=== PATIENT | female | born 1975 | race Two or more races ===

== ENCOUNTER 2022-04-21 11:33 | Outpatient (REF) | payer OTHER, SELFPAY | END 2022-04-21 11:34 | disposition home or self-care (01) | LOC: HO.HOSX 11:33 | PROVIDERS: Visit Provider Orthopaedic Surgery | DX: Z13.89 Encounter for screening for other disorder (principal) ==

== ENCOUNTER 2022-04-22 | Outpatient (REF) | payer OTHER, SELFPAY ==
--- NOTE | ~2022-04-22 | XR_ITS ---
EXAMINATION: XR KNEES AP STANDING, BILATERAL XR KNEE, 2 VIEWS, RIGHT CLINICAL INFORMATION: M25.569 - Pain in unspecified knee. COMPARISON: 08/16/2017 TECHNIQUE: Standing AP view of both knees and lateral and sunrise views of the right knee. FINDINGS: LEFT KNEE: Bones and soft tissues are normal. No fracture. Alignment is anatomic. Joint spaces are well maintained. No abnormal soft tissue calcification. RIGHT KNEE: Postsurgical changes of prior ACL reconstruction are evident with an Endobutton at the lateral aspect of the femoral tunnel and a lag screw soft tissue anchor in the anteromedial aspect of the proximal tibia near the tibial tunnel, unchanged from prior. Again seen is nonuniform medial compartment joint space narrowing with articular cortical irregularity and marginal osteophytes. Additional marginal osteophytes and cortical irregularity are evident in the patellofemoral compartment. Lateral compartment appears relatively well preserved by comparison. Overall, this appearance is unchanged as compared to prior. No significant joint effusion. XR/XR knee standing BI IMPRESSION: Mild osteoarthritis in the medial and patellofemoral compartments of the right knee, unchanged. Prior ACL reconstruction. No acute findings. Normal AP view of the left knee.
--- NOTE | ~2022-04-22 | XR_ITS ---
EXAMINATION: XR KNEES AP STANDING, BILATERAL XR KNEE, 2 VIEWS, RIGHT CLINICAL INFORMATION: M25.569 - Pain in unspecified knee. COMPARISON: 08/16/2017 TECHNIQUE: Standing AP view of both knees and lateral and sunrise views of the right knee. FINDINGS: LEFT KNEE: Bones and soft tissues are normal. No fracture. Alignment is anatomic. Joint spaces are well maintained. No abnormal soft tissue calcification. RIGHT KNEE: Postsurgical changes of prior ACL reconstruction are evident with an Endobutton at the lateral aspect of the femoral tunnel and a lag screw soft tissue anchor in the anteromedial aspect of the proximal tibia near the tibial tunnel, unchanged from prior. Again seen is nonuniform medial compartment joint space narrowing with articular cortical irregularity and marginal osteophytes. Additional marginal osteophytes and cortical irregularity are evident in the patellofemoral compartment. Lateral compartment appears relatively well preserved by comparison. Overall, this appearance is unchanged as compared to prior. No significant joint effusion. XR/XR knee RT 2V IMPRESSION: Mild osteoarthritis in the medial and patellofemoral compartments of the right knee, unchanged. Prior ACL reconstruction. No acute findings. Normal AP view of the left knee.
== END 2022-04-22 00:01 | disposition home or self-care (01) ==
LOC: HO.HOSX
PROVIDERS: Visit Provider Orthopaedic Surgery
DX: M25.561 Pain in right knee (principal)
CPT/HCPCS: 73560; 73565

== ENCOUNTER 2023-02-28 08:27 | Outpatient (REF) | payer OTHER, SELFPAY ==
--- NOTE | ~2023-02-28 | XR_ITS ---
EXAMINATION: XR KNEE, AP STANDING, BILATERAL XR KNEE, 2 VIEWS, LEFT CLINICAL INFORMATION: M25.569 - Pain in unspecified knee. COMPARISON: 04/22/2022. TECHNIQUE: Standing AP view of both knees and lateral and sunrise views of the left knee. FINDINGS: LEFT KNEE: Medial and lateral joint spaces are preserved. Small joint effusion. Tiny posterior patellar osteophytes. RIGHT KNEE: Redemonstration of postsurgical changes of prior ACL reconstruction with Endobutton at the lateral aspect of the femoral tunnel and a lag screw, soft tissue anchor in the anteromedial aspect of the proximal tibia near the tibial tunnel, similar in position. Redemonstration of advanced medial joint space narrowing with cortical irregularity and marginal osteophytes. Small lateral marginal osteophytes. XR/XR knee standing BI IMPRESSION: 1. Minimal degenerative changes left knee with small joint effusion. 2. Redemonstration of postsurgical changes of prior right ACL reconstruction. 3. Redemonstration of advanced degenerative changes medial compartment right knee.
--- NOTE | ~2023-02-28 | XR_ITS ---
EXAMINATION: XR KNEE, AP STANDING, BILATERAL XR KNEE, 2 VIEWS, LEFT CLINICAL INFORMATION: M25.569 - Pain in unspecified knee. COMPARISON: 04/22/2022. TECHNIQUE: Standing AP view of both knees and lateral and sunrise views of the left knee. FINDINGS: LEFT KNEE: Medial and lateral joint spaces are preserved. Small joint effusion. Tiny posterior patellar osteophytes. RIGHT KNEE: Redemonstration of postsurgical changes of prior ACL reconstruction with Endobutton at the lateral aspect of the femoral tunnel and a lag screw, soft tissue anchor in the anteromedial aspect of the proximal tibia near the tibial tunnel, similar in position. Redemonstration of advanced medial joint space narrowing with cortical irregularity and marginal osteophytes. Small lateral marginal osteophytes. XR/XR knee LT 2V IMPRESSION: 1. Minimal degenerative changes left knee with small joint effusion. 2. Redemonstration of postsurgical changes of prior right ACL reconstruction. 3. Redemonstration of advanced degenerative changes medial compartment right knee.
== END 2023-02-28 08:28 | disposition home or self-care (01) ==
LOC: HO.HOSX 08:27
PROVIDERS: Visit Provider Orthopaedic Surgery
DX: M23.92 Unspecified internal derangement of left knee (principal); M25.562 Pain in left knee
CPT/HCPCS: 20610; 73560; 73565; J1100

== ENCOUNTER 2023-02-28 09:15 | Outpatient (AMB) | payer OTHER, SELFPAY ==
--- NOTE | 2023-02-28 09:33 | MHC.OFFVIS ---
Intake Vital Signs 02/28/23 09:38 Height 5 ft 3.5 in Weight 220 lb BMI 38.4 Intake Visit Reasons: Newprob-Left knee pain Intake Note: Erika is a 47 year old female who presents today for a new problem visit with complaints of left knee pain. Patient reports about 3 weeks ago she tried to catch her father while he was falling and felt pain in the left knee. Currently she feels pain on the medial aspect of the left knee at all times, worsened with activity. Takes tylenol & ibuprofen as needed with mild relief. no previous history of treatment for this knee. Denies numbness and tingling. Allergies aspirin [ASPIRIN] Allergy (Unknown, Verified 02/28/23 09:41) EPISTAXIS YRS AGO HPI Newprob-Left knee pain HPI Details Erika is a 47 year old woman who presents with complaints of left knee pain. She complains of pain mostly in the median aspect of her knee, which she says is constant. Her pain began ~3 weeks ago when she tried to catch her falling father. She says Tylenol & NSAIDs do not help her pain. She says her pain is worse with twisting motions, and is limiting her function. She says sleep has been difficult due to her pain. She has severe post-traumatic OA of the right knee. She has a hx of right ACL repair w/ allograft & MMT, DOS: 09/22/10 at [facility] & right knee partial medial meniscectomy, DOS: 03/03/16 performed by [facility]. 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 Site was prepped using aseptic technique. Patient tolerated the procedure well. Primary Site: left knee Approach Used: anterolateral Coding - Large joint Procedure code (CPT) selection complete Results Reviewed Results Reviewed: 02/28/23 09:49 BUPivacaine MPF 0.25 % [Sensorcaine-MPF 0.25% 10 ML] 10 ml .ROUTE .STK-MED ONE Lidocaine HCl 2 % MPF [Xylocaine 2 % MPF] 5 ml .ROUTE .STK-MED ONE dexAMETHasone sod phosphate [Decadron] 4 mg .ROUTE .STK-MED ONE I personally reviewed relevant radiographs. Nl left knee radiographs Assessment & Plan Assessment & Plan (1) Internal derangement of left knee: Code(s): M23.92 - Unspecified internal derangement of left knee Plan: This is a 47 year old woman with left knee internal derangement, S/P injury on ~02/07/23. She has pain constantly, worse with twisting activities and weight-bearing. I discussed her diagnosis and treatment options. I recommend RICE & NSAIDs. I injected her left knee today, which she tolerated well, and I prescribed Ibuprofen for her. If her symptoms persist or worsen in the next 6 weeks we can consider ordering an MRI . Otherwise, follow-up prn. Plan Scribed for Danny Turner MD by Ayush Chung, medical staff director, on 02/28/23 at 9:50 AM, EST. Orders: Orders XR knee LT 2V 02/28/23 M25.569 - Pain in unspecified knee XR knee standing BI 02/28/23 M25.569 - Pain in unspecified knee Medications: New ibuprofen 800 mg PO TID PRN 90 tabs 0RF pain Coding Level of Care Code Est Pt Level 4 (13607) Diagnoses Internal derangement of left knee M23.92 CPT Codes Coding - Large joint: 04567 - Large joint ([id number])
[2023-02-28 09:38] VITALS: BMI 38.4
== END 2023-02-28 10:03 | disposition home or self-care (01) ==
PROVIDERS: PCP Internal Medicine; Visit Provider Orthopaedic Surgery
DX: M23.92 Unspecified internal derangement of left knee (principal)
CPT/HCPCS: 20610; 99214

== ENCOUNTER 2023-05-16 08:39 | Outpatient (REF) | payer OTHER, SELFPAY ==
--- NOTE | ~2023-05-16 | XR_ITS ---
EXAMINATION: XR ANKLE, RIGHT CLINICAL INFORMATION: Pain in unspecified ankle and joints of unspecified foot COMPARISON: None available. TECHNIQUE: AP, lateral, and mortise views of the right ankle. FINDINGS: The bone mineralization is normal. Tiny ossific/calcific fragment just superior to the dorsal, proximal aspect of the navicular, of indeterminate age and etiology. Alignment is preserved. Joint spaces are maintained. XR/XR ankle RT min 3V IMPRESSION: Tiny ossific/calcific fragment just superior to the dorsal, proximal aspect of the navicular, of indeterminate age and etiology. Recommend follow-up imaging in 10-14 days if fracture is suspected. Additional imaging with CT scan or MRI should be considered for better visualization as these modalities are much more sensitive for detection of fracture or other underlying pathology.
== END 2023-05-16 08:40 | disposition home or self-care (01) ==
LOC: HO.HOSX 08:39
PROVIDERS: Visit Provider Orthopaedic Surgery
DX: M76.821 Posterior tibial tendinitis, right leg (principal); M21.41 Flat foot [pes planus] (acquired), right foot
CPT/HCPCS: 73610

== ENCOUNTER 2023-05-16 09:22 | Outpatient (AMB) | payer OTHER, SELFPAY ==
[2023-05-16 09:25] VITALS: BMI 38.4
--- NOTE | 2023-05-16 09:25 | A.OFFVIS_ITS ---
Intake Vital Signs 05/16/23 09:25 Height 5 ft 3.5 in Weight 220 lb BMI 38.4 Intake Visit Reasons: New Prob- Left ankle pain Intake Note: Erika is a 47 year old female who presents today for a new problem visit with complaints of right ankle pain. Patient rpeorts that she has had ongoing right ankle pain for about 2 months. She explains that many years ago she played vollyeball and had a tibia fracture that went untreated and now she believed that this is flaired up. Denies numbness and tingling. Allergies aspirin [ASPIRIN] Allergy (Unknown, Verified 02/28/23 09:41) EPISTAXIS YRS AGO HPI New Prob- Left ankle pain HPI Details Erika is a 47 year old woman who presents with complaints of right ankle pain. She complains of pain in her ankle with weight-bearing activities. She says she developed a tibia fracture when she was younger playing volleyball, and that she never had treatment for this. She is worried her ankle pain is flaring up and related to this. Her pain began ~2 months ago. 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 Review of Systems Const All systems reviewed & are unremarkable except as noted in HPI and below Physical Exam Vital Signs: BMI result Body Mass Index 38.4 Const General: no acute distress, alert and awake Orientation/consciousness: patient oriented x3 HEENT Head: Yes normocephalic and Yes atraumatic Eyes EOM: EOMs intact bilaterally Resp Effort & Inspection: normal respiratory effort and able to speak in complete sentences Cardio Jugular venous distension: no JVD Skin General skin exam: turgor normal Rashes: no rashes Neuro General: patient oriented x3 Extrem Other: Right Ankle: + too many toes sing on right cannot stand of toes on right Psych Appearance: grossly normal Affect: normal affect Attitude: cooperative Results Reviewed Results Reviewed: I personally reviewed relevant radiographs. Nl appearing ankle Assessment & Plan Assessment & Plan (1) Posterior tibial tendinitis, right leg: Code(s): M76.821 - Posterior tibial tendinitis, right leg Plan: This is a 47 year old woman with right PP deformity. She has pain over the posterior tibial tendon and cannot toe stand. . She denies any prior treatment. We discussed options and she would like a referral to a foot & ankle specialist for assessment & treatment. She can follow up prn. (2) Acquired pes planus of right foot: Code(s): M21.41 - Flat foot [pes planus] (acquired), right foot Plan Scribed for Danny Turner MD by Ayush Chung, biomedical equipment technician, on 05/16/23 at 10:00 AM, EST. Coding Level of Care Code Est Pt Level 4 (14740) Diagnoses Posterior tibial tendinitis, right leg M76.821 Acquired pes planus of right foot M21.41
== END 2023-05-16 10:01 | disposition home or self-care (01) ==
PROVIDERS: PCP Internal Medicine; Visit Provider Orthopaedic Surgery
DX: M76.821 Posterior tibial tendinitis, right leg (principal); M21.41 Flat foot [pes planus] (acquired), right foot
CPT/HCPCS: 99213

== ENCOUNTER 2024-12-15 12:04 | Emergency (ER) | payer OTHER, SELFPAY ==
[2024-12-15 12:21] VITALS: BP 139/79; PULSE 73; RESP 18; TEMP 36.3; O2SAT 100; BMI 40.6
--- NOTE | 2024-12-15 12:27 | ED_ITS ---
HPI - Eye Problem General Chief complaint: Eye Problems Stated complaint: R eye irritation Time Seen by Provider: 12/15/24 13:55 Source: patient Mode of arrival: ambulatory Limitations: no limitations History of Present Illness ED Provider: Gian Hollis DO HPI Narrative: 49-year-old female with no significant past medical or surgical history presents to the ED for right-sided eye irritation and redness as well as increased tears and noticing small white ?gunk? in the corner upon waking this morning. Patient had no symptoms yesterday. She denies obvious foreign body to the eye. She is vision loss or double vision. She denies symptoms affecting the left eye. She denies fevers or ear pain. She does not wear contact lenses. She does have corrective glasses and follows up with an lactation specialist. Related Data Home Medications ?Medication ?Instructions ?Recorded ?Confirmed amlodipine 5 mg tablet 5 mg PO DAILY 04/22/22 sertraline 100 mg tablet 100 mg PO DAILY 04/22/22 sertraline 25 mg tablet 25 mg PO DAILY 04/22/22 trazodone 50 mg tablet 25 - 50 mg PO BEDTIME 04/22/22 Previous Rx's ?Medication ?Instructions ?Recorded ibuprofen 600 mg tablet 600 mg PO Q8H PRN pain #90 tabs 04/22/22 ibuprofen 800 mg tablet 800 mg PO TID PRN for pain #90 tabs 06/01/23 erythromycin 5 mg/gram (0.5 %) eye 0.5 inch ophthalmic (eye) QID #3.5 12/15/24 ointment grams Allergies Allergy/AdvReac Type Severity Reaction Status Date / Time aspirin [ASPIRIN] Allergy Unknown EPISTAXIS Verified 12/15/24 12:21 YRS AGO Review of Systems Review of Systems: Yes all other systems are reviewed and are negative [facility] Past Medical History Medical History (Updated 12/15/24 @ 14:52 by Gian Hollis DO) Hypertension Surgical History (Updated 02/28/23 @ 09:46 by Giovanna Brown CMA) H/O right knee surgery (~09/22/10) History of right knee surgery (~03/03/16) H/O: hysterectomy (~2020) Family History Family History (Updated 02/28/23 @ 09:46 by Giovanna Brown CMA) Other H/O left knee surgery History of right knee surgery Social History Social History (Updated 04/22/22 @ 09:13 by Giovanna Brown CMA) Patient Tobacco Use Status: Current everyday Tobacco user Cigarette Packs Per Day: 10 Advance Directives: No Advance Directives Information Provided: No Current occupational status: employed 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 ?Moist mucous membranes Eyes: ?PERRL, EOMI, injection noted of the right conjunctiva. Using fluorescein, there are no signs of corneal abrasion. There are no signs of foreign body if flipping of the lids. No signs of corneal ulcer or herpetic lesions. Vision is unchanged from baseline. 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 has been having allergy symptoms last few days, No known injury. Will need visual acuity and eye exam VSS Medications Administered Discontinued Medications Generic Name Dose Route Start Last Admin Trade Name Freq PRN Reason Stop Dose Admin Fluorescein Sodium 1 strip 12/15/24 14:26 12/15/24 14:39 Fluorescein Sodium Strip EYE-RIGHT 12/15/24 14:27 1 strip ONCE ONE Administration Tetracaine HCl 1 drop 12/15/24 14:26 12/15/24 14:39 Tetracaine Hcl 0.5% Oph Rosario 5 Ml Drops EYE-RIGHT 12/15/24 14:27 1 drop ONCE ONE Administration Medical Decision Making Medical Decision Making MDM Narrative: Patient presenting with a right eye redness and history of purulent discharge as well as mild irritation. No signs of foreign body or corneal abrasion. Differential includes viral or bacterial conjunctivitis. Less likely allergic is not affecting the other eye. We will treat with erythromycin ointment. The patient is provided return precautions and agrees with plan to follow up with her lactation specialist. Discharge Plan Discharge Clinical Impression: Bacterial conjunctivitis Patient Disposition: Home, Self-Care Instructions: Conjunctivitis (ED) Additional Instructions: Apply ointment in the right eye 4 times a day for the next 5 days. Return with fevers, vision loss, worsening pain or any other new or concerning symptoms. Follow up with your lactation specialist. Prescriptions: New erythromycin 5 mg/gram (0.5 %) ointment 0.5 inch ophthalmic (eye) QID Qty: 3.5 0RF No Action ibuprofen 800 mg tablet 800 mg PO TID PRN (Reason: for pain) Qty: 90 0RF sertraline 100 mg tablet 100 mg PO DAILY sertraline 25 mg tablet 25 mg PO DAILY amlodipine 5 mg tablet 5 mg PO DAILY trazodone 50 mg tablet 25 - 50 mg PO BEDTIME ibuprofen 600 mg tablet 600 mg PO Q8H PRN (Reason: pain) Qty: 90 0RF Print Language: Jamaican
[2024-12-15 13:58] VITALS: BP 145/82; PULSE 65; RESP 16; TEMP 37.1; O2SAT 97
--- NOTE | 2024-12-15 14:02 | PC.NURSE ---
Patient states woke this morning with swelling to sclera or right eye with assoc itching, tearing and blurry vision. Denies any pain at this time. .
--- OUTSIDE RECORDS SUMMARY | 2024-12-15 14:06 | XMS_ITS | Patient Health Record ---
Author Organization [facility] Address [address] [place] [address] Care Team Providers Care Client Support Manager Name Role Phone Unknown, Unknown Primary Care Provider Unavailab NHAN Osei Unavailable [phone] Allergies Allergen (clinical drug ingredient) Drug/Non Drug Allergy documented on EMR Reaction Allergy Type Onset Date Status topiramate Topamax numbness Drug Allergy Active Aspirin 81 Unknown Drug Allergy Active Reason For Referral Reason Evaluation and manag ement - Dr. Toney Diagnosis 1 Morbid (severe) obes ity due to excess calories (E66.01) Referral Organization [facility] Referring Provider First Name NHAN Referring Provider Last Name FANNIE Referring Provider Speciality Internal M edicine Referred Provider Specialty Surgery General Notes Referral sent to [facility] General Surgery in [place] - Dept will call patient for scheduling.Gosia Latraya 02/15/2024 12:58:24 PM > Referral Priority Routine Medications Medication SIG (Take, Route, Frequency, Duration) Notes Start Date End Date Status Ibuprofen 600 MG 1 tablet with food o r milk as needed Orally Three times a day Active amLODIPine Besylate 5 MG TAKE 1 TABLET B Y MOUTH EVERY DAY FOR 30 DAYS for 90 Active Protonix 20 MG 1 tablet Orally Once a day for 30 days 02/23/2023 Active Wegovy 1 MG/0.5ML 1 mg Subcutaneous on ce a week for 30 days Active Sertraline HCl 100 MG 1.25 tablet Orally Once a day Active Womens Multi Active Immunizations Vaccine Route Administration Date Status Comme nts COVID 19 Pfizer Unknown 11/19/2020 Administered COVID 19 Pfizer Unknown 12/11/2020 Administered Tdap Unknown 03/02/2011 Administered Social History Tobacco Use: Social History Observation Description Date Details (start date - stop date) Current Smoker NA - NA Tobacco Use/Smoking Question Answer Notes Are you a current smoker How often do you smoke cigarettes? every day Alcohol Screen (Audit-C) Question Answer Notes Did you have a drink contain ing alcohol in the past year? Yes How often did you have a dri nk containing alcohol in the past year? 2 to 3 times a week (3 points) How many drinks did you have on a typical day when you were drinking in the past year? 3 or 4 drinks (1 point) Points 4 Interpretation Positive Problems Problem Type SNOMED Code ICD Code Onset Dates Problem Status W/U Status Risk Notes Problem Morbid obesity (disorder) (102060145) Morbid (severe) obesity due to excess calories (E66.01) Active confirmed Problem Nicotine dependence, cigarettes, uncomplicated (F17.210) Active confirmed Problem Generalized anxiety disorder (36134582) Generalized anxiety disorder (F41.1) Active confirmed Problem Essential hypertension (92280806) Essential (primary) hypertension (I10) Active confirmed Vital Signs Heart Rate 80 /min 05/28/2024 Temperature 98.6 degrees Fahrenheit 05/28/2024 Blood pressure diastolic 80 mm Hg 05/28/2024 Oximetry 100 % 05/28/2024 Height 5'3'' in 05/28/2024 Blood pressure systolic 124 mm Hg 05/28/2024 Weight 230.9 lbs 05/28/2024 BMI 40.9 kg/m2 05/28/2024 Encounters Encounter Location Date Provider Diagnosis [address] [place] [address] 02/15/2024 JUSTIN GUL Morbid (severe) obes ity due to excess calories E66.01 and Dietary counseling and surveillance Z71.[address] [place] [address] 04/13/2024 JUSTIN GUL Morbid (severe) obes ity due to excess calories E66.01 ; Dietary counseling and surveillance Z71.3 ; Nicotine dependence, cigarettes, uncomplicated F17.210 and Tobacco abuse counseling Z71.[address] [place] [address] 05/28/2024 JUSTIN GUL Morbid (severe) obes ity due to excess calories E66.01 ; Dietary counseling and surveillance Z71.3 ; Nicotine dependence, cigarettes, uncomplicated F17.210 and Tobacco abuse counseling Z71.[address] [place] [address] 02/23/[address] [place] [address] 03/08/[address] [place] [address] 04/13/[address] [place] [address] 02/13/2024 [facility] Assessments Encounter Date Diagnosis (ICD Code) Assessment Notes Treatment Notes Treatment Clinical Notes Section Notes 04/13/2024 Dietary counseling and surveillance (ICD-10 - Z71.3) Glenny is a 48 year old lady here today for medical weight management. We saw her in January. She lost 14 lbs since last visit. Advised cardio exercises and increase exercise intensity and frequency as tolerated. Monitor calories burned during exercise. Be consistent with calorie restriction. Dietary recommendations. Food recall was done today and patient advised to be on low calorie, low carbohydrate diet. Restrict calories to less than 1500 kcal in 24 hours. Low glycemic index foods and encouraged. Meal replacements were recommended. Advised to use rfia-zsi-kcwucnk multivitamins and vitamin D. Advised to use calorie counter and adhere to portion control. Monthly goal is to lose 4-6 pounds Pharmacotherapy. Increase Wegovy to 0.5 MG/0.5ML weekly. Side effects explained to the patient. Goal is to lose 3-5% of body weight in 3 months. Exercise. Patient encouraged to increase frequency, intensity and duration of exercise. Encouraged to burn at least 250-500 kcal in one session. Also encouraged to do weight training Assess. Different risk factors discussed with the patient and addressed Advise. Patient was given clear And specific advise that she will comply with Low-calorie diet and try not to exceed more than 1300 kcal in 24 hours. Agree. Mutually agreed to work together to achieve appropriate goals Assist. Motivational interviewing done. Arrange. Follow-up appointment arranged. Counseling. 20 minutes spent Face to face with the patient more than 50% of time was spent counseling Abdominal diastasis. She saw Dr. Connors and he suggested that it is cosmetic procedure but according to the patient it is affecting her quality of life and she needs to have it operated at some point Scribe services used to formulate this note under HIPAA compliance and under [place] law mandated for scribe services. Patient aware of service. Verbal consent and written consent taken from the patient. Patient understands and verbalizes understanding of the scribes services and all questions answered regarding scribes services. Patient agrees to use of scribes services. 05/28/2024 Morbid (severe) obesity due to excess calories (ICD-10 - E66.01) Glenny is a 48 year old lady here today for medical weight management.We saw her in April. She lost a pound since last visit. Advised cardio exercises and increase exercise intensity and frequency as tolerated. Monitor calories burned during exercise. Be consistent with calorie restriction. Dietary recommendations. Food recall was done today and patient advised to be on low calorie, low carbohydrate diet. Restrict calories to less than 1500 kcal in 24 hours. Low glycemic index foods and encouraged. Meal replacements were recommended. Advised to use krav-ies-rijllto multivitamins and vitamin D. Advised to use calorie counter and adhere to portion control. Monthly goal is to lose 4-6 pounds Pharmacotherapy. Increase Wegovy to 1 MG/0.5ML weekly. Side effects explained to the patient. Goal is to lose 3-5% of body weight in 3 months. Exercise. Patient encouraged to increase frequency, intensity and duration of exercise. Encouraged to burn at least 250-500 kcal in one session. Also encouraged to do weight training Assess. Different risk factors discussed with the patient and addressed Advise. Patient was given clear And specific advise that she will comply with Low-calorie diet and try not to exceed more than 1300 kcal in 24 hours. Agree. Mutually agreed to work together to achieve appropriate goals Assist. Motivational interviewing done. Arrange. Follow-up appointment arranged. Counseling. 20 minutes spent Face to face with the patient more than 50% of time was spent counseling Abdominal diastasis. She saw Dr. Connors and he suggested that it is cosmetic procedure but according to the patient it is affecting her quality of life and she needs to have it operated at some point Scribe services used to formulate this note under HIPAA compliance and under [place] law mandated for scribe services. Patient aware of service. Verbal consent and written consent taken from the patient. Patient understands and verbalizes understanding of the scribes services and all questions answered regarding scribes services. Patient agrees to use of scribes services. 05/28/2024 Dietary counseling and surveillance (ICD-10 - Z71.3) Glenny is a 48 year old lady here today for medical weight management.We saw her in April. She lost a pound since last visit. Advised cardio exercises and increase exercise intensity and frequency as tolerated. Monitor calories burned during exercise. Be consistent with calorie restriction. Dietary recommendations. Food recall was done today and patient advised to be on low calorie, low carbohydrate diet. Restrict calories to less than 1500 kcal in 24 hours. Low glycemic index foods and encouraged. Meal replacements were recommended. Advised to use vdea-kdz-uilkkof multivitamins and vitamin D. Advised to use calorie counter and adhere to portion control. Monthly goal is to lose 4-6 pounds Pharmacotherapy. Increase Wegovy to 1 MG/0.5ML weekly. Side effects explained to the patient. Goal is to lose 3-5% of body weight in 3 months. Exercise. Patient encouraged to increase frequency, intensity and duration of exercise. Encouraged to burn at least 250-500 kcal in one session. Also encouraged to do weight training Assess. Different risk factors discussed with the patient and addressed Advise. Patient was given clear And specific advise that she will comply with Low-calorie diet and try not to exceed more than 1300 kcal in 24 hours. Agree. Mutually agreed to work together to achieve appropriate goals Assist. Motivational interviewing done. Arrange. Follow-up appointment arranged. Counseling. 20 minutes spent Face to face with the patient more than 50% of time was spent counseling Abdominal diastasis. She saw Dr. Connors and he suggested that it is cosmetic procedure but according to the patient it is affecting her quality of life and she needs to have it operated at some point Scribe services used to formulate this note under HIPAA compliance and under [place] law mandated for scribe services. Patient aware of service. Verbal consent and written consent taken from the patient. Patient understands and verbalizes understanding of the scribes services and all questions answered regarding scribes services. Patient agrees to use of scribes services. 02/15/2024 Morbid (severe) obesity due to excess calories (ICD-10 - E66.01) Glenny is a 48 year old lady here today for medical weight management. We saw her in March last year. She lost 24 lbs in total and gained 29 lbs since last visit. Advised cardio exercises and increase exercise intensity and frequency as tolerated. Monitor calories burned during exercise. Be consistent with calorie restriction. Dietary recommendations. Food recall was done today and patient advised to be on low calorie, low carbohydrate diet. Restrict calories to less than 1500 kcal in 24 hours. Low glycemic index foods and encouraged. Meal replacements were recommended. Advised to use cqby-xdj-xunbedr multivitamins and vitamin D. Advised to use calorie counter and adhere to portion control. Monthly goal is to lose 4-6 pounds Pharmacotherapy. She is not on pharmacotherapy at this point. Restart Wegovy 0.25 MG/0.5ML weekly. Side effects explained to the patient. Goal is to lose 3-5% of body weight in 3 months. Exercise. Patient encouraged to increase frequency, intensity and duration of exercise. Encouraged to burn at least 250-500 kcal in one session. Also encouraged to do weight training Assess. Different risk factors discussed with the patient and addressed Advise. Patient was given clear And specific advise that she will comply with Low-calorie diet and try not to exceed more than 1300 kcal in 24 hours. Agree. Mutually agreed to work together to achieve appropriate goals Assist. Motivational interviewing done. Arrange. Follow-up appointment arranged. Counseling. 20 minutes spent Face to face with the patient more than 50% of time was spent counseling General health concerns discussed with patient. Scribe services used to formulate this note under HIPAA compliance and under [place] law mandated for scribe services. Patient aware of service. Verbal consent and written consent taken from the patient. Patient understands and verbalizes understanding of the scribes services and all questions answered regarding scribes services. Patient agrees to use of scribes services. 02/15/2024 Dietary counseling and surveillance (ICD-10 - Z71.3) Glenny is a 48 year old lady here today for medical weight management. We saw her in March last year. She lost 24 lbs in total and gained 29 lbs since last visit. Advised cardio exercises and increase exercise intensity and frequency as tolerated. Monitor calories burned during exercise. Be consistent with calorie restriction. Dietary recommendations. Food recall was done today and patient advised to be on low calorie, low carbohydrate diet. Restrict calories to less than 1500 kcal in 24 hours. Low glycemic index foods and encouraged. Meal replacements were recommended. Advised to use wnrx-tor-glbkuvu multivitamins and vitamin D. Advised to use calorie counter and adhere to portion control. Monthly goal is to lose 4-6 pounds Pharmacotherapy. She is not on pharmacotherapy at this point. Restart Wegovy 0.25 MG/0.5ML weekly. Side effects explained to the patient. Goal is to lose 3-5% of body weight in 3 months. Exercise. Patient encouraged to increase frequency, intensity and duration of exercise. Encouraged to burn at least 250-500 kcal in one session. Also encouraged to do weight training Assess. Different risk factors discussed with the patient and addressed Advise. Patient was given clear And specific advise that she will comply with Low-calorie diet and try not to exceed more than 1300 kcal in 24 hours. Agree. Mutually agreed to work together to achieve appropriate goals Assist. Motivational interviewing done. Arrange. Follow-up appointment arranged. Counseling. 20 minutes spent Face to face with the patient more than 50% of time was spent counseling General health concerns discussed with patient. Scribe services used to formulate this note under HIPAA compliance and under [place] law mandated for scribe services. Patient aware of service. Verbal consent and written consent taken from the patient. Patient understands and verbalizes understanding of the scribes services and all questions answered regarding scribes services. Patient agrees to use of scribes services. 04/13/2024 Morbid (severe) obesity due to excess calories (ICD-10 - E66.01) Glenny is a 48 year old lady here today for medical weight management. We saw her in January. She lost 14 lbs since last visit. Advised cardio exercises and increase exercise intensity and frequency as tolerated. Monitor calories burned during exercise. Be consistent with calorie restriction. Dietary recommendations. Food recall was done today and patient advised to be on low calorie, low carbohydrate diet. Restrict calories to less than 1500 kcal in 24 hours. Low glycemic index foods and encouraged. Meal replacements were recommended. Advised to use pikw-fux-cywyiuq multivitamins and vitamin D. Advised to use calorie counter and adhere to portion control. Monthly goal is to lose 4-6 pounds Pharmacotherapy. Increase Wegovy to 0.5 MG/0.5ML weekly. Side effects explained to the patient. Goal is to lose 3-5% of body weight in 3 months. Exercise. Patient encouraged to increase frequency, intensity and duration of exercise. Encouraged to burn at least 250-500 kcal in one session. Also encouraged to do weight training Assess. Different risk factors discussed with the patient and addressed Advise. Patient was given clear And specific advise that she will comply with Low-calorie diet and try not to exceed more than 1300 kcal in 24 hours. Agree. Mutually agreed to work together to achieve appropriate goals Assist. Motivational interviewing done. Arrange. Follow-up appointment arranged. Counseling. 20 minutes spent Face to face with the patient more than 50% of time was spent counseling Abdominal diastasis. She saw Dr. Connors and he suggested that it is cosmetic procedure but according to the patient it is affecting her quality of life and she needs to have it operated at some point Scribe services used to formulate this note under HIPAA compliance and under [place] law mandated for scribe services. Patient aware of service. Verbal consent and written consent taken from the patient. Patient understands and verbalizes understanding of the scribes services and all questions answered regarding scribes services. Patient agrees to use of scribes services. 04/13/2024 Nicotine dependence, cigarettes, uncomplicated (ICD-10 - F17.210) Glenny is a 48 year old lady here today for medical weight management. We saw her in January. She lost 14 lbs since last visit. Advised cardio exercises and increase exercise intensity and frequency as tolerated. Monitor calories burned during exercise. Be consistent with calorie restriction. Dietary recommendations. Food recall was done today and patient advised to be on low calorie, low carbohydrate diet. Restrict calories to less than 1500 kcal in 24 hours. Low glycemic index foods and encouraged. Meal replacements were recommended. Advised to use seju-gdx-swqbwtu multivitamins and vitamin D. Advised to use calorie counter and adhere to portion control. Monthly goal is to lose 4-6 pounds Pharmacotherapy. Increase Wegovy to 0.5 MG/0.5ML weekly. Side effects explained to the patient. Goal is to lose 3-5% of body weight in 3 months. Exercise. Patient encouraged to increase frequency, intensity and duration of exercise. Encouraged to burn at least 250-500 kcal in one session. Also encouraged to do weight training Assess. Different risk factors discussed with the patient and addressed Advise. Patient was given clear And specific advise that she will comply with Low-calorie diet and try not to exceed more than 1300 kcal in 24 hours. Agree. Mutually agreed to work together to achieve appropriate goals Assist. Motivational interviewing done. Arrange. Follow-up appointment arranged. Counseling. 20 minutes spent Face to face with the patient more than 50% of time was spent counseling Abdominal diastasis. She saw Dr. Connors and he suggested that it is cosmetic procedure but according to the patient it is affecting her quality of life and she needs to have it operated at some point Scribe services used to formulate this note under HIPAA compliance and under [place] law mandated for scribe services. Patient aware of service. Verbal consent and written consent taken from the patient. Patient understands and verbalizes understanding of the scribes services and all questions answered regarding scribes services. Patient agrees to use of scribes services. 05/28/2024 Nicotine dependence, cigarettes, uncomplicated (ICD-10 - F17.210) Glenny is a 48 year old lady here today for medical weight management.We saw her in April. She lost a pound since last visit. Advised cardio exercises and increase exercise intensity and frequency as tolerated. Monitor calories burned during exercise. Be consistent with calorie restriction. Dietary recommendations. Food recall was done today and patient advised to be on low calorie, low carbohydrate diet. Restrict calories to less than 1500 kcal in 24 hours. Low glycemic index foods and encouraged. Meal replacements were recommended. Advised to use cpel-ubg-ccfauxy multivitamins and vitamin D. Advised to use calorie counter and adhere to portion control. Monthly goal is to lose 4-6 pounds Pharmacotherapy. Increase Wegovy to 1 MG/0.5ML weekly. Side effects explained to the patient. Goal is to lose 3-5% of body weight in 3 months. Exercise. Patient encouraged to increase frequency, intensity and duration of exercise. Encouraged to burn at least 250-500 kcal in one session. Also encouraged to do weight training Assess. Different risk factors discussed with the patient and addressed Advise. Patient was given clear And specific advise that she will comply with Low-calorie diet and try not to exceed more than 1300 kcal in 24 hours. Agree. Mutually agreed to work together to achieve appropriate goals Assist. Motivational interviewing done. Arrange. Follow-up appointment arranged. Counseling. 20 minutes spent Face to face with the patient more than 50% of time was spent counseling Abdominal diastasis. She saw Dr. Connors and he suggested that it is cosmetic procedure but according to the patient it is affecting her quality of life and she needs to have it operated at some point Scribe services used to formulate this note under HIPAA compliance and under [place] law mandated for scribe services. Patient aware of service. Verbal consent and written consent taken from the patient. Patient understands and verbalizes understanding of the scribes services and all questions answered regarding scribes services. Patient agrees to use of scribes services. 04/13/2024 Tobacco abuse counseling (ICD-10 - Z71.6) Glenny is a 48 year old lady here today for medical weight management. We saw her in January. She lost 14 lbs since last visit. Advised cardio exercises and increase exercise intensity and frequency as tolerated. Monitor calories burned during exercise. Be consistent with calorie restriction. Dietary recommendations. Food recall was done today and patient advised to be on low calorie, low carbohydrate diet. Restrict calories to less than 1500 kcal in 24 hours. Low glycemic index foods and encouraged. Meal replacements were recommended. Advised to use aadc-hio-ikbwtxv multivitamins and vitamin D. Advised to use calorie counter and adhere to portion control. Monthly goal is to lose 4-6 pounds Pharmacotherapy. Increase Wegovy to 0.5 MG/0.5ML weekly. Side effects explained to the patient. Goal is to lose 3-5% of body weight in 3 months. Exercise. Patient encouraged to increase frequency, intensity and duration of exercise. Encouraged to burn at least 250-500 kcal in one session. Also encouraged to do weight training Assess. Different risk factors discussed with the patient and addressed Advise. Patient was given clear And specific advise that she will comply with Low-calorie diet and try not to exceed more than 1300 kcal in 24 hours. Agree. Mutually agreed to work together to achieve appropriate goals Assist. Motivational interviewing done. Arrange. Follow-up appointment arranged. Counseling. 20 minutes spent Face to face with the patient more than 50% of time was spent counseling Abdominal diastasis. She saw Dr. Connors and he suggested that it is cosmetic procedure but according to the patient it is affecting her quality of life and she needs to have it operated at some point Scribe services used to formulate this note under HIPAA compliance and under [place] law mandated for scribe services. Patient aware of service. Verbal consent and written consent taken from the patient. Patient understands and verbalizes understanding of the scribes services and all questions answered regarding scribes services. Patient agrees to use of scribes services. 05/28/2024 Tobacco abuse counseling (ICD-10 - Z71.6) Glenny is a 48 year old lady here today for medical weight management.We saw her in April. She lost a pound since last visit. Advised cardio exercises and increase exercise intensity and frequency as tolerated. Monitor calories burned during exercise. Be consistent with calorie restriction. Dietary recommendations. Food recall was done today and patient advised to be on low calorie, low carbohydrate diet. Restrict calories to less than 1500 kcal in 24 hours. Low glycemic index foods and encouraged. Meal replacements were recommended. Advised to use eksb-aok-npxlatu multivitamins and vitamin D. Advised to use calorie counter and adhere to portion control. Monthly goal is to lose 4-6 pounds Pharmacotherapy. Increase Wegovy to 1 MG/0.5ML weekly. Side effects explained to the patient. Goal is to lose 3-5% of body weight in 3 months. Exercise. Patient encouraged to increase frequency, intensity and duration of exercise. Encouraged to burn at least 250-500 kcal in one session. Also encouraged to do weight training Assess. Different risk factors discussed with the patient and addressed Advise. Patient was given clear And specific advise that she will comply with Low-calorie diet and try not to exceed more than 1300 kcal in 24 hours. Agree. Mutually agreed to work together to achieve appropriate goals Assist. Motivational interviewing done. Arrange. Follow-up appointment arranged. Counseling. 20 minutes spent Face to face with the patient more than 50% of time was spent counseling Abdominal diastasis. She saw Dr. Connors and he suggested that it is cosmetic procedure but according to the patient it is affecting her quality of life and she needs to have it operated at some point Scribe services used to formulate this note under HIPAA compliance and under [place] law mandated for scribe services. Patient aware of service. Verbal consent and written consent taken from the patient. Patient understands and verbalizes understanding of the scribes services and all questions answered regarding scribes services. Patient agrees to use of scribes services. Plan Of Treatment Future Test Test Name Order Date 25OH VITAMIN D 04/10/2022 COMPREHENSIVE METABOLIC PANEL 04/10/2022 HEMOGLOBIN A1C WITH EST GLUCOSE 04/10/20 22 LIPID PANEL 04/10/2022 MAGNESIUM 04/10/2022 TSH 04/10/2022 Insurance Providers Payer Name Payer Address Payer Phone Subscriber Number Group Number Insured Name Patient Relationship to Insured Coverage Start Date Coverage End Date [facility] [address] [place], [place] [phone] [id number] GLENNY ACEVES Self - patient is the insured Medical (General) History Medical History History ICD Code Generalized anxiety disorder Hypertension Surgical History Surgery Date(Month/Year) right ACL/meniscus tear repair total hysterectomy 2020
--- OUTSIDE RECORDS SUMMARY | 2024-12-15 14:06 | XMS_ITS | Clinical Summary ---
Author Organization Patient Business Ser [facility] Address [address] [place] [address] Care Team Providers Care Swimming Pool Attendant Name Role Phone Mar Gudino MD Primary Care Prov ider Allergies Active Allergy Reactions Criticality Noted Date Comments Aspirin Nose Bleed 04/06/2006 Medications scopolamine (TRANSDERM-SCOP ) 1 mg over 3 days patch [address] 1 Patch onto the skin every 72 hours as needed (Motion sickness). apply ear at least 4 hours prior to exposure 04/08/20 23 Active amLODIPine (NORVASC) 5 mg tablet TAKE 1 TABLET BY MOUTH EVERY DAY 90 tablet 1 07/20/20 24 Active sertraline (ZOLOFT) 100 mg tabletIndicatio ns:Anxiety disorder, unspecified TAKE 1 TABLET BY MOUTH EVERY DAY WITH 25MG FOR TOTAL OF 125MG 90 tablet 11/14/19 25 Active ibuprofen (ADVIL,MOTRIN) 800 mg tablet Take 1 tablet (800 mg total) by mouth every 8 (eight) hours if needed for moderate pain. 90 each 1 11/21/19 25 025 Active nicotine (Nicotrol) 10 mg inhaler Inhale 1 puff by mouth if needed for smoking cessation. 42 each 11/21/19 25 025 Active ibuprofen (ADVIL,MOTRIN) 800 mg tablet Take 1 Tablet by mouth every 8 hours as needed. 025 Discontinued(Re order) traZODone (DESYREL) 50 mg tablet Take 1 Tablet by mouth at bedtime for 28 days. 04/08/20 23 025 Discontinued sertraline (ZOLOFT) 25 mg tablet TAKE 1 TABLET BY MOUTH EVERY DAY 90 tablet 11/14/19 25 025 Discontinued Active Problems Problem Noted Date Diagnosed Date Moderate mixed hyperlipidemia not requiring stat in therapy 12/11/2024 Morbid obesity with BMI of 4 0.0-44.9, adult ([facility] V24, [facility] V28) 04/26/2024 Hypertension 04/08/2023 Insomnia 04/08/2023 Moderate episode of recurren t major depressive disorder ([facility] V24, [facility] V28) 04/08/2023 Anxiety 12/14/2021 Back pain 08/11/2017 Obesity, unspecified obesity severity, unspecified obesity type 08/11/2017 ACL tear 07/27/2010 Encounters Date Type Department Care Team Description 12/14/2024 Telephone Adult Medicine [facility] [address] [place] [address] Christopher Larose PA Results (Labs - info from Calvin) 11/26/2024 Telephone Gastroenterology - [place] [address] [facility] [address] [facility] [address] [place] [address] Rosalva Batista MD special procedure 11/20/2024 4:00 PM EDT Office Visit [address] [address] Christopher Larose PA Adult general medical examination (Primary Dx); Primary hypertension; Anxiety; Screening, anemia, deficiency, iron; Screening for cardiovascular condition; Class 2 severe obesity due to excess calories with serious comorbidity and body mass index (BMI) of 39.0 to 39.9 in adult ([facility] V24, [facility] V28); Screen for colon cancer; Screening, lipid; Need for pqcyoagtbo-wwdslyz-rddj ussis (Tdap) vaccine; Screen for STD (sexually transmitted disease); Other fatigue; Snoring from Last 3 Months Immunizations Name Administration Dates Next Due Influenza trivalent, with pr eservative (Fluzone; Afluria) 6mo and older 05/16/2020 PPD Test 04/30/2015 [employer] SARS-CoV-2 COVID-19, mRNA, LNP-S, preservative free 11/19/2020 Tdap Tetanus diptheria acell ular pertussis (Boostrix; Adacel) 7yo and older 11/20/2024,03/02/2011 Surgical History Surgery Date Site/Laterality Comments ORTHOPEDIC SURGERY 09/24/2010 PROCEDURE: HISTORICAL ORTHOPEDIC SURGERY; COMMENT: torn ACL right knee OTHER SURGICAL HISTORY Right PROCEDURE: NV DRAINAGE OVARIAN CYST UNI/BI SPX ABDOMINAL KNEE SURGERY 2016 Right PROCEDURE: HISTORICAL KNEE SURGERY; COMMENT: meniscus tear ROBOTIC ASSISTED HYSTERECTOMY 08/01/2019 - 07/31/2020 Medical History Medical History Date Comments Family history of diabetes mellitus 05/14/2009 DX:Family history of diabetes mellitus Back pain 08/11/2017 DX:Back pain Family History Medical History Relation Name Comments No Known Problems Daughter 1 No Known Problems Daughter 2 Coronary artery disease Father s/p CABG age 66 Diabetes Father Stroke Maternal Grandfather age 56 Other cancer Maternal Grandmother Diabetes Mother No Known Problems Paternal Grandfather No Known Problems Paternal Grandmother No Known Problems Sister 1 No Known Problems Sister 2 Breast cancer Neg Hx Colon cancer Neg Hx Relation Name Status Comments Daughter 1 Alive Daughter 2 Alive Father (Age 83) Maternal Grandfather Maternal Grandmother Mother Alive Paternal Grandfather Paternal Grandmother Sister 1 Alive Sister 2 Alive Social History Tobacco Use Types Packs/Day Years Used Date Smoking Tobacco: Every Day Cigarettes Smokeless Tobacco: Never Alcohol Use Standard Drinks/Week Comments Yes 0 (1 standard drink = 0.6 oz pur e alcohol) weekends Comments No Sex and Gender Information Value Date Recorded Sex Assigned at Not on file Legal Sex Female 2:27 PM EDT Gender Identity Not on file Sexual Orientation Not on file Obstetrics History Last Filed Vital Signs Vital Sign Reading Time Taken Comments Blood Pressure 137/77 11/20/2024 3:56 PM EDT Pulse 83 11/20/2024 3:56 PM EDT Temperature 36.6 ??C (97.8 ??F) 11/20/2024 3:56 PM ED T Respiratory Rate - - Oxygen Saturation - - Inhaled Oxygen Concentration - - Weight 105 kg (232 lb) 11/20/2024 3:56 PM EDT Height 162.6 cm (5' 4 ) 11/20/2024 3:56 PM EDT Body Mass Index 39.82 11/20/2024 3:56 PM EDT Plan of Treatment Upcoming Encounters Date Type Department Care Team (Late st Contact Info) Description 01/21/2025 10:30 AM EDT Appointment [facility] [address] [place] [id number] Rosalva Batista MD [address] [facility] [address] [place] [address] 03/08/2025 1:50 PM EDT Appointment Radiology Department - [address] [phone] Health Maintenance Due Date Last Done Comments Pneumococcal Vaccine: 50+ Years (1 of 2 - PCV) 1993 Colorectal Cancer Screening: Colonoscopy 10/29/2020 Social Influencers of Health Screening 10/29/2020 Zoster Vaccines (1 of 2) 2024 Influenza Vaccine (Season Ended) 2025 05/16/2023, 05/16/2020 Cervical Cancer Screening: HPV 04/28/2025 04/28/2020 Depression Screening 11/20/2025 11/20/2024 Hypertension/CHF/CAD Annual BMP Blood Test 12/11/2025 12/11/2024, 12/02/2023, 12/02/2023 Breast Cancer Screening 03/01/2026 03/01/20 24, 03/01/2024, 11/19/2021, Additional history exists Cholesterol Screening (Lipid Panel) 12/11/2029 12/11/2024, 11/16/2021 DTaP,Tdap,and Td Vaccines (3 - Td or Tdap) 11/20/2034 11/20/2024, 03/02/2011 COVID-19 Vaccine Discontinued 11/19/2020 HIV Screening Discontinued 12/11/2024 Hepatitis C Screening Completed 12/11/2024, 011 HIB Vaccines Aged Out No longer eligi ble based on patient's age to complete this topic HPV Vaccines Aged Out No longer eligi ble based on patient's age to complete this topic Hepatitis A Vaccines Aged Out No long er eligible based on patient's age to complete this topic Hepatitis B Vaccines Discontinued IPV Vaccines Aged Out No longer eligi ble based on patient's age to complete this topic MMR Vaccines Aged Out No longer eligi ble based on patient's age to complete this topic Meningococcal ACWY Vaccine Aged Out N o longer eligible based on patient's age to complete this topic Meningococcal B Vaccine Aged Out No l onger eligible based on patient's age to complete this topic Pneumococcal Vaccine: Pediatrics (0 to 5 Years) and At-Risk Patients (6 to 64 Years) Discontinued RSV Immunization Patients Under 20 months Aged Out No longer eligible based on patient's age to complete this topic Varicella Vaccines Aged Out No longer eligible based on patient's age to complete this topic Procedures Procedure Name Priority Date/Time Associated Diagnosis Comments HEMOGLOBIN A1C Routine 12/11/2024 11:49 AM EDT Elevated blood sugar CBC WITH AUTO DIFFERENTIAL Routine 12/11/2024 11:49 AM EDT Screening, anemia, deficiency, iron HIV 1, 2 ANTIBODY, P24 ANTIGEN WITH REFLEX TO DIFFERENTIATION Routine 12/11/2024 11:49 AM EDT Screen for STD (sexually transmitted disease) HEPATITIS C ANTIBODY Routine 12/11/2024 11:49 AM EDT Screen for STD (sexually transmitted disease) CBC AND DIFFERENTIAL Routine 12/11/2024 11:49 AM EDT Screening, anemia, deficiency, iron LIPID PANEL WITH REFLEX TO DIRECT LDL Routine 12/11/2024 11:49 AM EDT Screening for cardiovascular condition COMPREHENSIVE METABOLIC PANEL Routine 12/11/2024 11:49 AM EDT Primary hypertension Screening for cardiovascular condition THYROID STIMULATING HORMONE WITH REFLEX TO FREE T4 AND FREE T3 Routine 12/11/2024 11:49 AM EDT Anxiety Class 2 severe obesity due to excess calories with serious comorbidity and body mass index (BMI) of 39.0 to 39.9 in adult (CMS/HCC V24, CMS/HCC V28) TREPONEMA PALLIDUM ANTIBODY WITH REFLEX TO RPR AND PARTICLE AGGLUTINATION Routine 12/11/2024 11:49 AM EDT Screen for STD (sexually transmitted disease) SCREENING MAMMOGRAPHY BI 2-VIEW BREAST INC CAD Routine 03/01/2024 4:17 PM EDT Encounter for screening mammogram for malignant neoplasm of breast HM HPV Routine 04/28/2020 from Last 3 Months or Most Recently Relevant to Health Maintenance Results * Hepatitis C antibody (12/11/2024 11:49 AM EDT) Hepatitis C Antibody Negative Negative LAB CHEMISTRY METHOD 12/11/2024 5:[address] [facility] Blood Venous blood specimen / Unknown Venipuncture / Unknown 12/11/2024 11:49 AM EDT 12/11/2024 11:49 AM EDT us Christopher BEINTEZ LAB BLOOD ORDERABLES Final Res ult Performing Organization Address [place]/ZIP Co de Phone Number [facility] [address] [place] [address], * HIV 1,2 antibody, p24 antigen with reflex to differentiation (12/11/2024 11:49 AM EDT) [facility] HIV Combo AB/AG Negative Negative LAB CHEMISTRY METHOD 12/11/2024 5:[address] [facility] Blood Venous blood specimen / Unknown Venipuncture / Unknown 12/11/2024 11:49 AM EDT 12/11/2024 11:[address] [facility] - 12/11/2024 5:54 PM EDT This assay is a 4th generation assay allowing for earlier detection of HIV infection by detecting the presence of the HIV-1 p24 antigen as well as the traditional antibodies to HIV type 1 (including group O) and type 2. ??Use of a 4th generation assay is the current CDC recommendation for HIV screening. us Christopher BENITEZ LAB BLOOD ORDERABLES Final Res ult [facility] [address] [place] [address], [place] [phone] * Treponema pallidum antibody with reflex to RPR and particle agglutination (12/11/2024 11:49 AM EDT) T. Pallidum Antibodies Negative Negative LAB CHEMISTRY METHOD 12/11/2024 5:[address] [facility] Blood Venous blood specimen / Unknown Venipuncture / Unknown 12/11/2024 11:49 AM EDT 12/11/2024 11:49 AM EDT us Christopher BENITEZ LAB BLOOD ORDERABLES Final Res ult Performing Organization Address [facility] Co de Phone Number [facility] [address] [place] [address], [place] [phone] * Thyroid stimulating hormone with reflex to free t4 and free t3 (12/11/2024 11:49 AM EDT) TSH 1.86 0.40 - 4.00 mcIU/mL LAB CHEMISTRY METHOD 12/11/2024 5:[address] [facility] Blood Venous blood specimen / Unknown Venipuncture / Unknown 12/11/2024 11:49 AM EDT 12/11/2024 11:49 AM EDT us Christopher BENITEZ LAB BLOOD ORDERABLES Final Res ult [facility] [address] [place] [address], [place] [phone] * (ABNORMAL) Lipid panel with reflex to direct LDL (12/11/2024 11:49 AM EDT) Cholesterol 239(H) 0 - 200 mg/dL LAB CHEMISTRY METHOD 12/11/2024 3:[address] [facility] Triglycerides 115 0 - 150 mg/dL LAB CHEMISTRY METHOD 12/11/2024 3:[address] [facility] HDL 102 >=40 mg/dL LAB CHEMISTRY METHOD 12/11/2024 3:[address] [facility] LDL Calculated 114(H) 0 - 100 mg/dL LAB CHEMISTRY METHOD 12/11/2024 3:[address] [facility] VLDL Cholesterol Devaughn 23 mg/dL LAB CHEMISTRY METHOD 12/11/2024 3:[address] [facility] Non HDL Chol. (LDL+VLDL) 137 <145 mg/dL LAB CHEMISTRY METHOD 12/11/2024 3:[address] [facility] Chol/HDL Ratio 2.3 0.0 - 4.4 LAB CHEMISTRY METHOD 12/11/2024 3:[address] [facility] Blood Venous blood specimen / Unknown Venipuncture / Unknown 12/11/2024 11:49 AM EDT 12/11/2024 11:49 AM EDT us Christopher BENITEZ LAB BLOOD ORDERABLES Final Res ult [facility] [address] [place] [address], [place] [phone] * (ABNORMAL) CBC auto differential (12/11/2024 11:49 AM EDT) WBC 5.7 4.8 - 10.8 K/mcL LAB HEMETOLOGY METHOD 12/11/2024 2:[address] [facility] RBC 4.00 3.80 - 4.80 M/mcL LAB HEMETOLOGY METHOD 12/11/2024 2:[address] [facility] Hemoglobin 13.6 11.5 - 16.0 g/dL LAB HEMETOLOGY METHOD 12/11/2024 2:[address] [facility] Hematocrit 41.2 35.0 - 47.0 % LAB HEMETOLOGY METHOD 12/11/2024 2:[address] [facility] MCV 102.7(H) 79.0 - 98.0 FL LAB HEMETOLOGY METHOD 12/11/2024 2:[address] [facility] MCH 33.9(H) 27.0 - 32.0 pcg LAB HEMETOLOGY METHOD 12/11/2024 2:[address] [facility] MCHC 33.0 32.0 - 37.0 g/dL LAB HEMETOLOGY METHOD 12/11/2024 2:[address] [facility] RDW 14.2 11.0 - 15.0 % LAB [facility]EMETOLOGY [facility] Plate[facility] 249 130 - 400 K/mcL LAB HEMETOLOGY METHOD 12/11/2024 2:44 PM [facility] MPV 11.4(H) 7.0 - 11.0 FL LAB HEMETOLOGY METHOD 12/11[facility]24 [facility] NRBC 0.0 <1.0 % LAB HEMETOLOGY METHOD 12/11/2024 2:44 PM [facility] NRBC Absolute 0.00 <0.10 K/mcL LAB HEMETOLOGY METHOD 12/11/2024 2:[address] [facility] Neutrophils Relative 55.5 % LAB HEMETOLOGY METHOD 12/11/2024 2:[address] [facility] Lymphocytes Relative 32.3 % LAB HEMETOLOGY METHOD 12/11[facility]2024 2[facility] Monocytes Relative 8.7 % LAB HEMETOLOGY METHOD 12/11/2024 2:44 PM [facility] Eosinophils Relative 2.6 % LAB HEMETOLOGY METHOD 12/11[facility]2024 [facility] Basophils Relative 0.7 % LAB HEMETOLOGY METHOD 12/11/2024 2:[address] [facility] Immature Granulocytes Relative 0.2 % LAB HEMETOLOGY METHOD 12/11/2024 2:[address] [facility] Neutrophils Absolute 3.17 1.50 - 7.00 K/mcL LAB HEMETOLOGY METHOD 12/11/2024 2:[address] [facility] Lymphocytes Absolute 1.85 1.00 - 5.00 K/mcL LAB HEMETOLOGY METHOD 12/11/2024 2:[address] [facility] Monocytes Absolute 0.50 0.20 - 1.00 K/mcL LAB HEMETOLOGY METHOD 12/11/2024 2:[address] [facility] Eosinophils Absolute 0.15 0.00 - 0.50 K/mcL LAB HEMETOLOGY METHOD 12/11/2024 2:[address] [facility] Basophils Absolute 0.04 0.00 - 0.20 K/mcL LAB HEMETOLOGY METHOD 12/11/2024 2:[address] [facility] Immature Granulocytes Absolute 0.01 0.00 - 0.03 K/mcL LAB HEMETOLOGY METHOD 12/11/2024 2:[address] [facility] Blood Venous blood specimen / Unknown Venipuncture / Unknown 12/11/2024 11:49 AM EDT 12/11/2024 11:49 AM EDT us Christopher BENITEZ LAB BLOOD ORDERABLES Final Res ult [facility] [address] [place] [address], * Hemoglobin A1c (12/11/2024 11:49 AM EDT) Hemoglobin A1C 5.8 <6.5 % LAB CHEMISTRY METHOD 12/13/2024 9:40 AM [facility] Mean Bld Glu Estim. 120 mg/dL LAB CHEMISTRY METHOD 12/13/2024 9:40 AM [facility] Blood Venous blood specimen / Unknown Venipuncture / Unknown 12/11/2024 11:49 AM EDT 12/11/2024 11:49 AM EDT us Christopher BENITEZ LAB BLOOD ORDERABLES Final Res ult [facility] [address] [place] [address], * (ABNORMAL) Comprehensive metabolic panel (12/11/2024 11:49 AM EDT) Sodium 138 133 - 145 mmol/L LAB CHEMISTRY METHOD 12/11/2024 3:56 PM [facility] Potassium 4.2 3.5 - 5.5 mmol/L LAB CHEMISTRY METHOD 12/11/2024 3:56 PM [facility] Chloride 104 96 - 110 mmol/L LAB CHEMISTRY METHOD 12/11/2024 3:56 PM [facility] CO2 26 21 - 32 mmol/L LAB CHEMISTRY METHOD 12/11/2024 3:56 PM [facility] Anion Gap 8 3 - 11 LAB CHEMISTRY METHOD 12/11/2024 3:56 PM [facility] Glucose 130(H) 70 - 100 mg/dL LAB CHEMISTRY METHOD 12/11/2024 3:56 PM [facility] BUN 20 5 - 25 mg/dL LAB CHEMISTRY METHOD 12/11/2024 3:56 PM [facility] Creatinine 0.84 0.50 - 1.10 mg/dL LAB CHEMISTRY METHOD 12/11/2024 3:56 PM [facility] eGFR 85 >=60 mL/min/1. 73m2 LAB CHEMISTRY METHOD 12/11/2024 3:[address] [facility] Comment:Calculation based on the Chronic Kidney Disease Epidemiology Collaboration (CKD-EPI) equation refit without adjustment for race. BUN/Creatinine Ratio 23.8 LAB CHEMISTRY METHOD 12/11/2024 3:[address] [facility] Calcium 9.4 8.5 - 10.5 mg/dL LAB CHEMISTRY METHOD 12/11/2024 3:56 PM [facility] AST (SGOT) 21 10 - 42 unit/L LAB CHEMISTRY METHOD 12/11/2024 3:56 PM [facility] ALT (SGPT) 29 10 - 60 unit/L LAB CHEMISTRY METHOD 12/11/2024 3:56 PM [facility] Alkaline Phosphatase 73 42 - 121 unit/L LAB CHEMISTRY METHOD 12/11/2024 3:56 PM [facility] Total Protein 7.4 6.0 - 8.0 g/dL LAB CHEMISTRY METHOD 12/11/2024 3:56 PM [facility] Albumin 3.7 3.2 - 5.0 g/dL LAB CHEMISTRY METHOD 12/11/2024 3:56 PM [facility] Total Bilirubin 0.6 0.0 - 1.4 mg/dL LAB CHEMISTRY METHOD 12/11/2024 3:56 PM [facility] Blood Venous blood specimen / Unknown Venipuncture / Unknown 12/11/2024 11:49 AM EDT 12/11/2024 11:49 AM EDT Christopher BENITEZ LAB BLOOD ORDERABLES Final Res ult [facility] [address] [place] [address], * SCREENING MAMMOGRAPHY BI 2-VIEW BREAST INC CAD (03/01/2024 4:17 PM EDT) Anatomical Region Laterality Modality Radiographic Audra ging 11/09/2023 11:5 3 AM EDT Narrative 03/02/2024 11:23 AM EDT This is a summary report. The complete report is available in the patient's medical record. If you cannot access the medical record, please contact the sending organization for a detailed fax or copy. Full field digital screening 2D C views and 3D tomosynthesis mammography, reviewed with CAD and compared to previous. The breast tissue is heterogeneously dense, limiting sensitivity. No suspicious mass, architectural distortion or suspicious calcifications are identified. IMPRESSION: : Dense breast tissue, limiting the sensitivity of mammography. No mammographic evidence of malignancy. BIRADS 1-Negative; N. 5 year breast cancer risk assessment 0.7 % Lifetime breast cancer risk assessment 7.1 % Breast cancer risk category Low (<15%) Procedure Note Melissa Peña MD - 05/16/2024 This is a summary report. The complete report is available in thepatient's medical record. If you cannot access the medical record, pleasecontact the sending organization for a detailed fax or copy. Full field digital screening 2D C views and 3D tomosynthesis mammography,reviewed with CAD and compared to previous. The breast tissue isheterogeneously dense, limiting sensitivity. No suspicious mass,architectural distortion or suspicious calcifications are identified. IMPRESSION: : Dense breast tissue, limiting the sensitivity of mammography. Nomammographic evidence of malignancy. BIRADS 1-Negative; N. 5 year breast cancer risk assessment 0.7 % Lifetime breast cancer risk assessment 7.1 % Breast cancer risk category Low (<15%) Humza Logan CNM IMG XR PROCEDURES Final Result * Cervical Cancer Screening: HPV (04/28/2020) Cervical Cancer Screening: HPV Negative, Abstracted Historical Provider HEALTH MAINTENANCE Final Result from Last 3 Months or Most Recently Relevant to Health Maintenance Insurance [facility] Care Teams Swimming Pool Attendant Relationship Specialty Start Date End Date Mar Gudino MD [address] [place] [id number] PCP - General Internal Medicine 11/04/20
--- OUTSIDE RECORDS SUMMARY | 2024-12-15 14:06 | XMS_ITS | Encounter Summary ---
Author Organization [employer] [address] Care Team Providers Care Motor Tester Name Role Phone Mar Gudino MD Primary Care Prov ider Reason for Visit * Reason Onset Date Comments Results 12/14/2024 Labs - info from Calvin Encounter Details Date Type Department Care Team ([facility] st Contact Info) Description 12/14/2024 Telephone Adult Medicine [facility] [address] [place] [address] Christopher Larose PA [address] [place] [address] Results (Labs - info from Calvin) Social History Tobacco Use Types Packs/Day Years [...] on file Sexual Orientation Not on file documented as of this encounter Progress Notes * Telma Almeida MA - 12/14/2024 3:20 PM EDT Called patient and left message on unidentified voicemail regarding her labs. * Erica Guzman - 12/14/2024 1:21 PM EDT Pt calling back about labs/A1C. She says she had a [place] before the blood test and is asking if that could affect the results, if Calvin would order a new lab for her to fast for. I read her Calvin's info, she said her parents both had diabetes. 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 documented in this encounter Plan of Treatment Upcoming Encounters Date Type Department Care Team (Late st Contact Info) Description 01/21/2025 10:30 AM EDT Appointment [facility] Endoscopy [address] [place] [address] Rosalva Batista MD [address] [address] 03/08/2025 1:50 PM EDT Appointment Radiology Department - [address] [address] documented as of this encounter Visit Diagnoses Not on filedocumented in this encounter Care Teams Motor Tester Relationship Specialty Start Date End Date Mar Gudino MD [address] [place] [address] PCP - General Internal Medicine 11/04/20 documented as of this encounter
--- OUTSIDE RECORDS SUMMARY | 2024-12-15 14:06 | XMS_ITS ---
Author Organization [facility] Address [address] [facility] [address] [place] [address] Care Team Providers Care Research & Insights Executive Name Role Phone Unknown, Unknown Primary Care Provider Unavailab NHAN Osei Unavailable [phone] REASON FOR VISIT 1 month f/u Encounters Encounter Location Date Provider Diagnosis [facility] [address] [place] [address] 05/15/2024 NHAN GRECO Plan Of Treatment No Information Progress Notes * GLENNY ACEVES LDOB:[birth year] (49 yo F)Acc No.[id number]:05/15/2024 Patient:?GLENNY ACEVES Provider:?NHAN GRECO MD :1975???Age:48 Y???Sex:Female D ate:05/15/2024 Address:[address] [place] [address] [id number] Pcp:Unknown Unknown Subjective: * Chief Complaints: * ???1. 1 month f/u. * Medical History:? Objective: * Vitals:? Assessment: Plan: * Treatment: * Images: * Electronic signature of ANTONETTE GRECO MD on 12/15/2024 at 02:06 PM EDT Sign off status: Pending * Provider:HAYLEY GRECO MD Date:?05/15 Generated for Printi ng/Faxing/eTransmitting on:?12/15/2024 02:06 PM EDT
--- OUTSIDE RECORDS SUMMARY | 2024-12-15 14:06 | XMS_ITS | Encounter Summary ---
Author Organization [place] [address] Care Team Providers Care Wardrobe Manager Name Role Phone Mar Gudino MD Primary Care Prov ider Reason for Visit * Reason Onset Date Comments special procedure 11/26/2024 Encounter Details Date Type Department Care Team ([facility] st Contact Info) Description 11/26/2024 Telephone Gastroenterology - [place] [address] [place] [address] Rosalva Batista MD [address] [place] [address] special procedure Social History Tobacco Use Types Packs/Day Years [...] as of this encounter Progress Notes * Nicol Pierce - 11/26/2024 3:56 PM EDT Patient returning call to schedule * Elian Griffiths - 11/26/2024 2:20 PM EDT Called LM to CB * Nicol Ty Yancey - 11/26/2024 12:28 PM EDT Patient calling to schedule colonoscopy documented in this encounter Plan of Treatment Upcoming Encounters Date Type Department Care Team (Late st Contact Info) Description 01/21/2025 10:[address] [facility] Endoscopy [address] [place] [address] Rosalva Batista MD [address] [address] 03/08/2025 1:50 PM EDT Appointment Radiology Department - [address] [address] documented as of this encounter Visit Diagnoses Not on filedocumented in this encounter Care Teams Wardrobe Manager Relationship Specialty Start Date End Date Mar Gudino MD [address] [place] [address] PCP - General Internal Medicine 11/04/20 documented as of this encounter
[2024-12-15] MEDS: Tetracaine HCl 0.5% Oph Sol 5 ML DROPS 1 DROP EYE-RIGHT (14:39)
[2024-12-15] MEDS: Fluorescein Sodium STRIP 1 STRIP EYE-RIGHT (14:39)
[2024-12-15] MEDS: Erythromycin Base 0.5% Oph Oin 1 GM TUBE 1 CM EYE-RIGHT (14:58)
[2024-12-15 15:02] VITALS: BP 145/82; PULSE 65; RESP 16; TEMP 37.1; O2SAT 97
== END 2024-12-15 15:03 | disposition home or self-care (01) ==
PROVIDERS: Emergency Provider Emergency Medicine
DX: H10.021 Other mucopurulent conjunctivitis, right eye (principal); H57.89 Other specified disorders of eye and adnexa
CPT/HCPCS: 99283; 99284

== ENCOUNTER 2025-01-11 08:05 | Outpatient (REF) | payer OTHER, SELFPAY ==
--- NOTE | ~2025-01-11 | XR_ITS ---
EXAMINATION: XR FOOT, LEFT CLINICAL INFORMATION: M79.672 - Pain in left foot COMPARISON: None available. TECHNIQUE: AP, lateral, and oblique views of the left foot. FINDINGS: Diagonally oriented cortical disruption with a 3.6 mm gap involving distal diaphysis of the fifth metatarsal. The pathologist are intact with normal alignment. The first second third and fourth metatarsals are intact. The tarsal bones are intact. Small plantar cuneus spur. Edema pattern soft tissues dorsal aspect of the left foot. No subcutaneous emphysema. No metallic or radiopaque foreign body. XR/XR foot LT min 3V IMPRESSION: Acute displaced fracture fifth metatarsal, left foot with associated soft tissue contusion. Electronically signed by: Sina Kelly MD 01/11/2025 01:36 PM EDT
--- OUTSIDE RECORDS SUMMARY | 2025-01-12 08:07 | XMS_ITS ---
Author Organization [facility] Address [address] [facility] [address] [place] [address] Care Team Providers Care Brake Adjuster Name Role Phone Unknown, Unknown Primary Care Provider Unavailab NHAN Osei Unavailable [phone] REASON FOR VISIT 1 month f/u Encounters Encounter Location Date Provider Diagnosis [facility] [address] [facility] [address] [place] [address] 05/15/2024 NHAN GRECO Plan Of Treatment No Information Progress Notes * GLENNY ACEVES LDOB:[birth year] (49 yo F)Acc No.[id number]:05/15/2024 Patient:?GLENNY ACEVES Provider:?NHAN GRECO MD :1975???Age:48 Y???Sex:Female D ate:05/15/2024 Address:[address] [place] [address] [id number] Pcp:Unknown Unknown Subjective: * Chief Complaints: * ???1. 1 month f/u. * Medical History:? Objective: * Vitals:? Assessment: Plan: * Treatment: * Images: * Electronic signature of ANTONETTE GRECO MD on 01/12/2025 at 08:07 AM EDT Sign off status: Pending * Provider:HAYLEY GRECO MD Date:?05/15 Generated for Printi ng/Faxing/eTransmitting on:?01/12/2025 08:07 AM EDT
== END 2025-01-11 08:06 | disposition home or self-care (01) ==
LOC: HO.HOSX 08:05
PROVIDERS: Visit Provider Physician Assistant
DX: M79.672 Pain in left foot (principal)
CPT/HCPCS: 73630

== ENCOUNTER 2025-01-11 12:57 | Outpatient (AMB) | payer OTHER, SELFPAY ==
[2025-01-11 13:01] VITALS: BMI 40.5
--- NOTE | 2025-01-11 13:01 | MHC.OFFVIS ---
Vital Signs 01/11/25 13:01 Height 5 ft 4 in Weight 236 lb BMI 40.5 Intake Visit Reasons: FC- Lt ankle 5th metatarsal fx Intake Note: Erika is a 49 year old female who presents today for evaluation of a left ankle 5th metatarsal fracture. Patient reports she slipped and fell on a dock on 12/31/24 while vacationing in [place]. Patient states majority of pain is on the dorsal aspect of the ankle. She has been taking ibuprofen, Tylenol, and tramadol for pain. Patient denies numbness or tingling of the left ankle but reports limited sensation in the toes. Patient denies previous injuries to left ankle. Allergies aspirin [ASPIRIN] Allergy (Unknown, Verified 01/11/25 13:14) EPISTAXIS YRS AGO HPI HPI FC- Lt ankle 5th metatarsal fx: Details: 49-year-old female presents to the office today for an injury she sustained to her left foot on 12/31/2024. She states she fell injuring the foot and was seen at a urgent care type facility where x-rays were obtained and she was referred to our office when she returned home. She also complains of right ankle pain from when she fell she does recall twisting the ankle. 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 There is some bruising of the lateral edge of the left foot. There is tenderness at the base of the 5th metatarsal. Sensation intact. EHL intact. No pain along the mediolateral malleolus. Neurovascularly intact. Right ankle normal to inspection with mild tenderness over the ATFL. Office Procedures AMB Fracture Care Fracture Billing Code: Fracture Billing Code Results Reviewed Results Reviewed: X-rays of the left foot obtained in the office today and reviewed by me show a minimally displaced 5th metatarsal shaft fracture. Assessment & Plan Assessment & Plan (1) Right ankle sprain: Code(s): S93.401A - Sprain of unspecified ligament of right ankle, initial encounter Category: Medical (2) Nondisplaced fracture of fifth left metatarsal bone: Code(s): S92.355A - Nondisplaced fracture of fifth metatarsal bone, left foot, initial encounter for closed fracture Category: Medical Plan Patient was placed in a short boot weightbearing as tolerated for the left foot. She should rest ice and elevate throughout the day. I did explain that this can take approximately 6 weeks for bony healing to begin and then another 6 weeks for the fracture to be strong. I would anticipate in the next 6 weeks she can transition to street shoes if tolerable. For the right ankle she was given a lace-up ankle brace to use with the shoe. She can weightbear as tolerated. I did recommend a course of physical therapy to work on range of motion gentle strengthening proprioceptive training on the right ankle. I will see her back in 4-6 weeks with x-rays of the left foot, sooner if needed. Orders: Orders XR foot LT min 3V 01/11/25 M79.672 - Pain in left foot PT Evaluation and Treatment 01/11/25 S93.401A - Sprain of unspecified ligament of right ankle, initial encounter Coding Level of Care Code New Pt Level 3 (39175) Complex EM visit Add On G2211 Diagnoses Right ankle sprain S93.401A Nondisplaced fracture of fifth left metatarsal bone S92.355A CPT Codes Fracture Care - Fracture Billing Code: Fracture Billing Code ([id number])
--- OUTSIDE RECORDS SUMMARY | 2025-01-11 13:22 | XMS_ITS ---
Author Organization [facility] Address [address] [facility] [address] [place] [address] Care Team Providers Care Shank Scourer Name Role Phone Unknown, Unknown Primary Care Provider Unavailab NHAN Osei Unavailable [phone] REASON FOR VISIT 1 month f/u Encounters Encounter Location Date Provider Diagnosis [facility] [address] [facility] [address] [place] [address] 05/15/2024 NHAN GRECO Plan Of Treatment No Information Progress Notes * GLENNY ACEVES LDOB:[birth year] (49 yo F)Acc No.[id number]:05/15/2024 Patient:?GLENNY ACEVES Provider:?NHAN GRECO MD :1975???Age:48 Y???Sex:Female D ate:05/15/2024 Address:[address] [place] [address] [id number] Pcp:Unknown Unknown Subjective: * Chief Complaints: * ???1. 1 month f/u. * Medical History:? Objective: * Vitals:? Assessment: Plan: * Treatment: * Images: * Electronic signature of ANTONETTE GRECO MD on 01/11/2025 at 01:22 PM EDT Sign off status: Pending * Provider:HAYLEY GRECO MD Date:?05/15 Generated for Printi ng/Faxing/eTransmitting on:?01/11/2025 01:22 PM EDT
== END 2025-01-11 14:51 | disposition home or self-care (01) ==
LOC: HO.HOS 12:58
PROVIDERS: Visit Provider Physician Assistant
DX: S93.401A Sprain of unspecified ligament of right ankle, initial encounter (principal); S92.355A Nondisplaced fracture of fifth metatarsal bone, left foot, initial encounter for closed fracture
CPT/HCPCS: 99203; G2211

== ENCOUNTER → 2025-01-11 13:01 | Outpatient (BNV) | payer OTHER, SELFPAY | PROVIDERS: Visit Provider Radiology Diagnostic Radiology | DX: S92.352A Displaced fracture of fifth metatarsal bone, left foot, initial encounter for closed fracture (principal) | CPT/HCPCS: 73630 ==

== ENCOUNTER 2025-02-12 16:49 | Outpatient (RCR) | payer OTHER, SELFPAY ==
--- NOTE | 2025-02-05 13:48 | MHC.PT.EP ---
[facility] [place] Office [place] [facility] [place] Office [address] Sage Ramey [address] [phone] F: [phone] F: [phone] F: [phone] F: [phone] Physical Therapy Plan of Care Date of Evaluation: 02/04/25 Date of Surgery: N/A Diagnosis: R ankle sprain (RL) Assessment: pt is a 49 y/o female presenting to physical therapy w/ referring diagnosis of R ankle sprain. Impairments include pain, decreased range of motion, decreased strength, impaired functional mobility, impaired postural awareness, and altered ambulation mechanics. pt is a good candidate for skilled PT due to age, potential remediation of impairments, typical disease/condition progression and prognosis, comorbidities, and motivation. pt would benefit from skilled PT intervention to provide a tailored strengthening and stretching exercise program, functional training, gait training, postural re-training, neuromuscular re-education, modalities as needed for pain, equipment safety demonstration. Frequency and Duration: The patient will be seen 2x/wk for 4 wks Short Term Goals: pt will be I w/ HEP to promote self-management of condition. pt will improve R ankle DF by at least 10* to promote ease in anterior tibial translation w/ ambulation. Webmethods Architect Goals: pt will report a statistically significant improvement in self-reported outcome measure, LEFI, to promote return to PLOF. pt will improve R ankle strength to 5/5 to promote ease in sit<>stand transfers. pt will navigate 12 stairs holding railing and 6# weight to promote ease in carrying groceries into house. Treatment Plan: Modalities to reduce pain, spasms and effusion. Manual therapy to restore motion and function. Therapeutic exercise to improve strength and flexibility. Neuromuscular re-education for posture and balance. Therapeutic activities to return to functional activities of daily living. Electronically signed by: Aurora Ellis PT, DPT Please sign and return to therapist. Thank you for your referral.
--- NOTE | 2025-03-29 08:44 | MHC.PT.DC ---
[place] Office [place] Office [place] Office [address] Sage Ramey [address] [phone] F: [phone] F: [phone] F: [phone] F: [phone] Physical Therapy Discharge Report Diagnosis: R ankle sprain (RL) Date of Surgery: N/A Date of Evaluation: 02/04/25 Date of Discharge: 03/29/25 Treatments to Date: 2 Cancellations to Date: 2 No Shows to Date: 0 Discharge Status: Visit Non-compliance Discharge Summary: The patient only scheduled 2 of the recommended 8 visits. She attended 1 and cancelled the other. She has not been seen in this office in 44 days. She is discharged for non-compliance. Electronically signed by: Aurora Ellis PT, DPT Please sign and return to therapist. Thank you for your referral.
== END 2025-03-29 08:44 | disposition home or self-care (01) ==
LOC: HO.PT 16:49
PROVIDERS: PCP Internal Medicine; Visit Provider Physician Assistant
DX: S93.401D Sprain of unspecified ligament of right ankle, subsequent encounter (principal); W01.0XXD Fall on same level from slipping, tripping and stumbling without subsequent striking against object, subsequent encounter
CPT/HCPCS: 97110; 97161

== ENCOUNTER 2025-02-18 08:07 | Outpatient (REF) | payer OTHER, SELFPAY ==
--- OUTSIDE RECORDS SUMMARY | 2024-05-15 11:30 | XMS_ITS ---
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 Role Phone Unknown, Unknown Primary Care Provider Unavailab NHAN Osei Unavailable [phone] REASON FOR VISIT 1 month f/u Encounters Encounter Location Date Provider Diagnosis [facility] [address] [facility] [address] [place] [address] 05/15/2024 NHAN GRECO Plan Of Treatment No Information Progress Notes * GLENNY ACEVES LDOB:[birth year] (49 yo F)Acc No.[id number]:05/15/2024 Patient: GLENNY MENDEZ Provider: Nichelle GRECO MD :1975 A ge:48 Y S ex:Female Date:05/15/2024 Address:[address] [place], [place] [address] Pcp:Unknown Unknown Subjective: * Chief Complaints: * 1 . 1 month f/u. * Medical History: Objective: * Vitals: Assessment: Plan: * Treatment: * Images: * Electronic signature of ANTONETTE GRECO MD on 02/19/2025 at 08:11 AM EDT Sign off status: Pending * Provider: Nichelle GRECO MD Date: 1 Generated for Rubyi ng/Fayiafng/eTransmitting on: 0 02/19/2025 08:11 AM EDT
--- NOTE | ~2025-02-18 | XR_ITS ---
EXAMINATION: XR FOOT 3 OR MORE VIEWS LEFT HISTORY: M79.672 - Pain in left foot COMPARISON: Comparison is made with the prior examination dated 01/11/2025. FINDINGS: Three views of the left foot are submitted. Osseous mineralization is normal. Again seen is an oblique fracture of the 5th metatarsal. Callus formation is seen at the fracture site, consistent with healing. The fracture remains visible. The joint spaces are preserved. There is a moderate plantar calcaneal spur. The soft tissues are unremarkable. XR/XR foot LT min 3V IMPRESSION: Healing oblique fracture of the 5th metatarsal. Electronically signed by: Pierre Michaels MD 02/18/2025 11:52 AM EDT
--- OUTSIDE RECORDS SUMMARY | 2025-02-19 08:12 | XMS_ITS | Clinical Summary ---
Author Organization Patient Business Ser [facility] Address [address] [place] [address] Care Team Providers Care Last Picker Name Role Phone Mar Gudino MD Primary [...] obesity with BMI of 4 0.0-44.9, adult ([facility] V24, [facility] V28) 04/26/2024 Hypertension 04/08/2023 Insomnia 04/08/2023 Moderate episode of recurren t major depressive disorder ([facility] V24, [facility] V28) 04/08/2023 Anxiety 12/14/2021 Back pain 08/11/2017 Obesity, unspecified obesity severity, unspecified obesity type 08/11/2017 ACL tear 07/27/2010 Encounters Date Type Department Care Team Description 01/21/2025 11:19 AM EDT Anesthesia Event [facility] [address] [place] [phone] Christopher Aleman DO McAdams, Megan, CRNA 01/21/2025 9:56 AM EDT - 01/21/2025 11:59 PM EDT Hospital Encounter [facility] [address] [place] [phone] Rosalva Batista MD McAdams, Megan, CRNA Colon cancer screening Discharge Disposition: Home or Self Care 12/25/2024 Telephone Adult Medicine - [address] [phone] Christopher Larose PA Medication Problem (nicotine (Nicotrol) 10 mg inhaler) 12/14/2024 Telephone Adult Medicine - [place] [address] [place] [phone] Christopher Larose PA Results (Labs - info from [facility]) 11/26/2024 Telephone Gastroenterology - [place] [address] [place] [address] Rosalva Batista MD special procedure 11/20/2024 4:00 PM EDT Office Visit [facility] [address] [place] [phone] Christopher Larose PA Adult general medical examination (Primary Dx); Primary hypertension; Anxiety; Screening, anemia, deficiency, iron; Screening for cardiovascular condition; Class 2 severe obesity due to excess calories with serious comorbidity and body mass index (BMI) of 39.0 to 39.9 in adult (CMS/HCC V24, CMS/[facility] V28); Screen for colon cancer; Screening, lipid; Need for jimmihcygx-fvipzhq-wqk tussis (Tdap) vaccine; Screen for STD (sexually transmitted disease); Other fatigue; Snoring from Last 3 Months Immunizations Name Administration Dates Next Due Influenza trivalent, with pr eservative (Fluzone; Afluria) 6mo and older 05/16/2020 PPD Test 04/30/2015 [facility] SARS-CoV-2 COVID-19, mRNA, LNP-S, preservative free 11/19/2020 Tdap Tetanus diptheria acell ular pertussis (Boostrix; Adacel) 7yo and older 11/20/2024,03/02/2011 Surgical History Surgery Date Site/Laterality Comments ORTHOPEDIC SURGERY 09/24/2010 PROCEDURE: HISTORICAL ORTHOPEDIC SURGERY; COMMENT: torn ACL right knee OTHER SURGICAL HISTORY Right PROCEDURE: [place] DRAINAGE OVARIAN CYST UNI/BI SPX ABDOMINAL KNEE [...] 1:50 PM EDT Appointment Radiology Department - [address] [phone] 11/22/2025 2:00 PM EDT Office Visit Adult Medicine [facility] [address] [place] [address] Mar Gudino MD [address] [place] [address] Health Maintenance Due Date Last Done Comments [...] (BMI) of 39.0 to 39.9 in adult (CMS/[facility] V24, [facility] V28) TREPONEMA PALLIDUM ANTIBODY WITH REFLEX TO [...] Maintenance Results * COLONOSCOPY Anesthesia - MAC; SP ENDOSCOPY (01/21/2025 11:41 AM EDT) Anatomical Region Laterality Modality Endoscopy 01/21/2025 11:2 5 AM EDT Impressions 01/21/2025 11:42 AM EDT - Diverticulosis in the sigmoid colon. - Internal hemorrhoids. - No specimens collected. Recommendation: - Repeat colonoscopy in 10 years for screening purposes. - High fiber diet. Narrative 01/21/2025 11:[address] [facility] Patient Name: Glenny Major Procedure Date: [...] verified by the physician, the nurse, the trench digger helper and the electrocardiograph technician in the pre-procedure area in the [...] malignant neoplasm of colon CPT copyright 2020 [employer]. All rights reserved. The codes documented in this report are preliminary and upon echocardiographer review may be revised to meet current compliance requirements. Rosalva Batista MD 01/21/2025 11:42:35 AM This report has been signed electronically.Rosalva Batista MD Number of Addenda: 0 Note Initiated On: 01/21/2025 11:25 AM Scope Withdrawal Time: 0 hours 8 minutes 22 seconds Scope In: 11:29:05 AM Scope Out: 11:40:36 AM Endoscopy Department at [facility] - [address] [place] [phone] Procedure Note Rosalva Batista MD - 01/21/2025 [facility] Patient Name: Glenny Major Procedure Date: [...] the physician, the nurse, theanesthetist and the electrocardiograph technician in the pre-procedure area in the [...] for malignantneoplasm of colon CPT copyright 2020 [employer]. All rights reserved. The codes documented in this report are preliminary and upon echocardiographer reviewmay be revised to meet current compliance requirements. Rosalva Batista MD 01/21/2025 11:42:35 AM This report has been signed electronically.Rosalva Batista MD Number of Addenda: 0 Note Initiated On: 01/21/2025 11:25 AM Scope Withdrawal Time: 0 hours 8 minutes 22 seconds Scope In: 11:29:05 AM Scope Out: 11:40:36 AM Endoscopy Department at [facility] - [address] [place] [phone] IMPRESSION: - Diverticulosis in the sigmoid colon. - Internal hemorrhoids. - No specimens collected. Recommendation: - Repeat colonoscopy in 10 years for screening purposes. - High fiber diet. Rosalva Batista MD GI~PROCEDURE ORDERABLES Fin al Result * Hepatitis C antibody (12/11/2024 11:49 AM EDT) Hepatitis C Antibody Negative Negative LAB CHEMISTRY METHOD 12/11/2024 5:53 PM EDT [facility] Blood Venous blood specimen / Unknown Venipuncture / Unknown 12/11/2024 11:49 AM EDT 12/11/2024 11:49 AM EDT Christopher BENITEZ LAB BLOOD ORDERABLES Final Res ult [facility] [address] [place] [address], [place] [phone] * HIV 1,2 antibody, p24 antigen with reflex to differentiation (12/11/2024 11:49 AM EDT) HIV Combo AB/AG Negative Negative LAB CHEMISTRY METHOD 12/11/2024 5:54 PM EDT [facility] Blood Venous blood specimen / Unknown Venipuncture / Unknown 12/11/2024 11:49 AM EDT 12/11/2024 11:49 AM EDT Narrative [facility] - 12/11/2024 5:54 PM EDT [...] ORDERABLES Final Res ult Performing Organization Address [facility] Co de Phone Number [facility] [address] [place] [address], [place] [phone] * Treponema pallidum antibody with reflex to RPR and particle agglutination (12/11/2024 11:49 AM EDT) T. Pallidum Antibodies Negative Negative LAB CHEMISTRY METHOD 12/11/2024 5:25 PM EDT [facility] Blood Venous blood specimen / Unknown Venipuncture / Unknown 12/11/2024 11:49 AM EDT 12/11/2024 11:49 AM EDT Christopher BENITEZ LAB BLOOD ORDERABLES Final Res ult Performing Organization Address [facility] de Phone Number [facility] [address] [place] [address], * Thyroid stimulating hormone with reflex to free t4 and free t3 (12/11/2024 11:49 AM EDT) TSH 1.86 0.40 - 4.00 mcIU/mL LAB CHEMISTRY METHOD 12/11/2024 5:14 PM EDT [facility] Blood Venous blood specimen / Unknown Venipuncture / Unknown 12/11/2024 11:49 AM EDT 12/11/2024 11:49 AM EDT Christopher BENITEZ LAB BLOOD ORDERABLES Final Res ult Performing Organization Address [facility]/ZIP Co de Phone Number [facility] [address] [place] [address], [place] [phone] * (ABNORMAL) Lipid panel with reflex to direct LDL (12/11/2024 11:49 AM EDT) Cholesterol 239(H) 0 - 200 mg/dL LAB CHEMISTRY METHOD 12/11/2024 3:56 PM EDT [facility] Triglycerides 115 0 - 150 mg/dL LAB CHEMISTRY METHOD 12/11/2024 3:56 PM EDT [facility] HDL 102 >=40 mg/dL LAB CHEMISTRY METHOD 12/11/2024 3:56 PM EDT [facility] LDL Calculated 114(H) 0 - 100 mg/dL LAB CHEMISTRY METHOD 12/11/2024 3:56 PM EDT [facility] VLDL Cholesterol Devaughn 23 mg/dL LAB CHEMISTRY METHOD 12/11/2024 3:56 PM EDT [facility] Non HDL Chol. (LDL+VLDL) 137 <145 mg/dL LAB CHEMISTRY METHOD 12/11/2024 3:56 PM EDT [facility] Chol/HDL Ratio 2.3 0.0 - 4.4 LAB CHEMISTRY METHOD 12/11/2024 3:56 PM EDT [facility] Blood Venous blood specimen / Unknown Venipuncture / Unknown 12/11/2024 11:49 AM EDT 12/11/2024 11:49 AM EDT Christopher BENITEZ LAB BLOOD ORDERABLES Final Res ult [facility] [address] [place] [address], [place] [phone] * (ABNORMAL) CBC auto differential (12/11/2024 11:49 AM EDT) [facility] WBC 5.7 4.8 - 10.8 K/mcL LAB HEMETOLOGY METHOD 12/11/2024 2:44 PM EDT [facility] RBC 4.00 3.80 - 4.80 M/mcL LAB HEMETOLOGY METHOD 12/11/2024 2:44 PM EDT [facility] Hemoglobin 13.6 11.5 - 16.0 g/dL LAB HEMETOLOGY METHOD 12/11[facility]2024 [facility] Hematocrit 41.2 35.0 - 47.0 % LAB HEMETOLOGY METHOD 12/11/2024 2:44 [facility] MCV 102.7(H) 79.0 - 98.0 FL LAB HEMETOLOGY METHOD 12/11/2024 2:44 PM [facility] MCH 33.9(H) 27.0 - 32.0 pcg LAB HEMETOLOGY METHOD 12/11/2024 2:44 PM [facility] MCHC 33.0 32.0 - 37.0 g/dL LAB HEMETOLOGY METHOD 12/11/2024 2:44 [facility] RDW 14.2 11.0 - 15.0 % LAB HEMETOLOGY METHOD 12/11/2024 2:44 PM [facility] Platelets 249 130 - 400 K/mcL LAB HEMETOLOGY METHOD 12/11/2024 2:44 PM [facility] MPV 11.4(H) 7.0 - 11.0 FL LAB HEMETOLOGY METHOD 12/11/2024 2:44 PM [facility] NRBC 0.0 <1.0 % LAB HEMETOLOGY METHOD 12/11/2024 2:44 PM [facility] NRBC Absolute 0.00 <0.10 K/mcL LAB HEMETOLOGY METHOD 12/11/2024 2:44 [facility] Neutrophils Relative 55.5 % LAB HEMETOLOGY METHOD 12/11/2024 2:44 PM [facility] Lymphocytes Relative 32.3 % LAB HEMETOLOGY METHOD 12/11/2024 2:44 PM EDT [facility] Monocytes Relative 8.7 % LAB HEMETOLOGY METHOD 12/11/2024 2:44 PM [facility] Eosinophils Relative 2.6 % LAB HEMETOLOGY METHOD 12/11/2024 2:44 [facility] Basophils Relative 0.7 % LAB HEMETOLOGY METHOD 12/11/2024 2:44 PM [facility] Immature Granulocytes Relative 0.2 % LAB HEMETOLOGY METHOD 12/11/2024 2:44 PM T [facility] Neutrophils Absolute 3.17 1.50 - 7.00 K/mcL LAB HEMETOLOGY METHOD 12/11/2024 2:44 PM [facility] Lymphocytes Absolute 1.85 1.00 - 5.00 K/mcL LAB HEMETOLOGY METHOD 12/11/2024 2:44 PM [facility] Monocytes Absolute 0.50 0.20 - 1.00 K/mcL LAB HEMETOLOGY METHOD 12/11/2024 2:44 PM [facility] Eosinophils Absolute 0.15 0.00 - 0.50 K/mcL LAB HEMETOLOGY METHOD 12/11/2024 2:44 PM [facility] Basophils Absolute 0.04 0.00 - 0.20 K/mcL LAB HEMETOLOGY METHOD 12/11/2024 2:44 PM [facility] Immature Granulocytes Absolute 0.01 0.00 - 0.03 K/mcL LAB HEMETOLOGY METHOD 12/11/2024 2:44 PM [facility] Blood Venous blood specimen / Unknown Venipuncture / Unknown 12/11/2024 11:49 AM EDT 12/11/2024 11:49 AM EDT Christopher BENITEZ LAB BLOOD ORDERABLES Final Res ult Performing Organization Address [facility]/ZIP Co de Phone Number [facility] [address] [place] [address], [place] [phone] * Hemoglobin A1c (12/11/2024 11:49 AM EDT) [facility] Hemoglobin A1C 5.8 <6.5 % LAB CHEMISTRY METHOD 12/13/2024 9:40 AM EDT [facility] Mean Bld Glu Estim. 120 mg/dL LAB CHEMISTRY METHOD 12/13/2024 9:40 AM EDT [facility] Blood Venous blood specimen / Unknown Venipuncture / Unknown 12/11/2024 11:49 AM EDT 12/11/2024 11:49 AM EDT Christopher BENITEZ LAB BLOOD ORDERABLES Final Res ult Performing Organization Address [facility]/ZIP Co de Phone Number [facility] [address] [place] [address], [place] [phone] * (ABNORMAL) Comprehensive metabolic panel (12/11/2024 11:49 AM EDT) [facility] Sodium 138 133 - 145 mmol/L LAB CHEMISTRY METHOD 12/11/2024 3:56 PM T [facility] Potassium 4.2 3.5 - 5.5 mmol/L LAB CHEMISTRY METHOD 12/11/2024 3:56 PM EDT [facility] Chloride 104 96 - 110 mmol/L LAB CHEMISTRY METHOD 12/11/2024 3:56 PM [facility] CO2 26 21 - 32 mmol/L LAB CHEMISTRY METHOD 12/11/2024 3:56 PM T [facility] Anion Gap 8 3 - 11 LAB CHEMISTRY METHOD 12/11/2024 3:56 PM [facility] Glucose 130(H) 70 - 100 mg/dL LAB CHEMISTRY METHOD 12/11/2024 3:56 PM [facility] BUN 20 5 - 25 mg/dL LAB CHEMISTRY METHOD 12/11/2024 3:56 PM [facility] Creatinine 0.84 0.50 - 1.10 mg/dL LAB CHEMISTRY METHOD 12/11/2024 3:56 PM [facility] eGFR 85 >=60 mL/min/1. 73m2 LAB CHEMISTRY METHOD 12/11/2024 3:56 PM [facility] Comment:Calculation based on the Chronic Kidney Disease Epidemiology Collaboration (CKD-EPI) equation refit without adjustment for race. BUN/Creatinine Ratio 23.8 LAB CHEMISTRY METHOD 12/11/2024 3:56 PM [facility] Calcium 9.4 8.5 - 10.5 mg/dL LAB CHEMISTRY METHOD 12/11/2024 3:56 PM [facility] AST (SGOT) 21 10 - 42 unit/L LAB CHEMISTRY METHOD 12/11/2024 3:56 PM [facility] ALT (SGPT) 29 10 - 60 unit/L LAB CHEMISTRY METHOD 12/11/2024 3:56 PM [facility] Alkaline Phosphatase 73 42 - 121 unit/L LAB CHEMISTRY METHOD 12/11/2024 3:56 PM [facility] Total Protein 7.4 6.0 - 8.0 g/dL LAB CHEMISTRY METHOD 12/11/2024 3:56 PM [facility] Albumin 3.7 3.2 - 5.0 g/dL LAB CHEMISTRY METHOD 12/11/2024 3:56 PM [facility] Total Bilirubin 0.6 0.0 - 1.4 mg/dL LAB CHEMISTRY METHOD 12/11/2024 3:56 PM [facility] Blood Venous blood specimen / Unknown Venipuncture / Unknown 12/11/2024 11:49 AM EDT 12/11/2024 11:49 AM EDT Christopher BENITEZ LAB BLOOD ORDERABLES Final Res ult [facility] [address] [place] [address], * SCREENING MAMMOGRAPHY BI 2-VIEW BREAST INC [...] CNM IMG XR PROCEDURES Final Result * Hm Cervical Cancer Screening: HPV (04/28/2020) [facility] Cervical Cancer Screening: HPV Negative, Abstracted us Historical Provider HEALTH MAINTENANCE Final Result from Last 3 Months or Most Recently Relevant to Health Maintenance Insurance [facility] Care Teams Last Picker Relationship Specialty Start Date End Date Mar Gudino MD [address] [place] [phone] PCP - General Internal Medicine 11/04/20
== END 2025-02-18 08:08 | disposition home or self-care (01) ==
LOC: HO.HOSX 08:07
PROVIDERS: Visit Provider Physician Assistant
DX: S92.355D Nondisplaced fracture of fifth metatarsal bone, left foot, subsequent encounter for fracture with routine healing (principal); M79.672 Pain in left foot; W01.0XXD Fall on same level from slipping, tripping and stumbling without subsequent striking against object, subsequent encounter
CPT/HCPCS: 73630

== ENCOUNTER 2025-02-18 09:47 | Outpatient (AMB) | payer OTHER, SELFPAY ==
--- OUTSIDE RECORDS SUMMARY | 2024-05-15 11:30 | XMS_ITS ---
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 Name Role Phone Unknown, Unknown Primary Care Provider Unavailab NHAN Osei Unavailable [phone] REASON FOR VISIT 1 month f/u Encounters Encounter Location Date Provider Diagnosis [facility] [address] [facility] [address] [place] [address] 05/15/2024 NHAN GRECO Plan Of Treatment No Information Progress Notes * GLENNY ACEVES LDOB:[birth year] (49 yo F)Acc No.[id number]:05/15/2024 Patient: GLENNY MENDEZ Provider: Nichelle GRECO MD :1975 A ge:48 Y S ex:Female Date:05/15/2024 Address:[address] [place], [place] [address] [facility] Pcp:Unknown Unknown Subjective: * Chief Complaints: * 1 . 1 month f/u. * Medical History: Objective: * Vitals: Assessment: Plan: * Treatment: * Images: * Electronic signature of ANTONETTE GRECO MD on 02/18/2025 at 10:24 AM EDT Sign off status: Pending * Provider: Nichelle GRECO MD Date: 1 Generated for Rubyi ng/Fayifang/eTransmitting on: 0 02/18/2025 10:24 AM EDT
--- NOTE | 2025-02-18 09:51 | MHC.OFFVIS ---
Intake Visit Reasons: 6wk f/u Left foot fx w xrays Intake Note: Erika is a 49 year old female who presents today for evaluation of a left ankle 5th metatarsal fracture. Patient reports she slipped and fell on a dock on 12/31/24. At her last visit she was placed in a short walking boot, referred to physical therapy and recommended to follow up in 4-6 weeks with x-rays of the left foot. Patient is still feeling a little bit of pain in her ankle. However she feels better since the last visit. She was also given an ankle brace for her right ankle. Allergies aspirin (ASPIRIN) Allergy (Unknown, Verified 02/18/25 09:57) EPISTAXIS YRS AGO HPI HPI 6wk f/u Left foot fx w xrays: Details: 49-year-old female presents to the office today for a follow-up left foot fracture 5th metatarsal. She has been wearing the boot weightbearing as tolerated. She states her pain is improving however she does have occasional discomfort. 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 Neurovascularly intact. Results Reviewed Results Reviewed: X-rays of the left foot obtained in the office today and reviewed by me show a stable fracture at the 5th metatarsal with interval healing. Assessment & Plan Assessment & Plan (1) Nondisplaced fracture of fifth left metatarsal bone: Code(s): S92.355A - Nondisplaced fracture of fifth metatarsal bone, left foot, initial encounter for closed fracture Category: Medical Plan: At this time she can wean from the boot into regular street shoes. I did encourage her to use something that has a stiff sole. I did educate her on fluctuations of pain and swelling with increase activities. She should avoid impact activities for another 6 weeks. She will use anti-inflammatories and ice as needed and if symptoms persist or worsen over the next 8-12 weeks she should contact our office otherwise follow up as needed. Orders: Orders XR foot LT min 3V Today M79.672 - Pain in left foot Coding Level of Care Code Global (08908) Diagnoses Nondisplaced fracture of fifth left metatarsal bone S92.355A
--- OUTSIDE RECORDS SUMMARY | 2025-02-18 10:25 | XMS_ITS | Clinical Summary ---
Author Organization Patient Business Ser [facility] Address [address] [place] [address] Care Team Providers Care Second Miller Name Role Phone Mar Gudino MD Primary Care Prov ider Allergies Active Allergy Reactions Criticality Noted Date Comments Aspirin Nose Bleed 04/06/2006 Medications scopolamine (TRANSDERM-SCO P) 1 mg over 3 days patch [address] 1 Patch onto the skin every 72 hours as needed (Motion sickness). apply ear at least 4 hours prior to exposure 04/08/20 23 Active sertraline (ZOLOFT) 100 mg tabletIndicati ons:Anxiety disorder, unspecified TAKE 1 TABLET BY MOUTH EVERY DAY WITH 25MG FOR TOTAL OF 125MG 90 tablet 11/14/19 25 Active nicotine (Nicotrol) 10 mg inhaler Inhale 1 puff by mouth if needed for smoking cessation. 42 each 12/26/19 25 Active Additional Information Patient not taking.Reported on 01/21/2025 polyethylene glycol (Golytely) 236-22.74-6.74 -5.86 gram solution Take 4L by mouth once for one dose. May substitue any PEG. Starting at 6PM the night before your procedure drink 1 8oz glasses at your own pace until you complete half of the gallon. Finish 2nd half of the gallon 5 hours before your procedure. 4000 mL 01/08/20 25 Active bisacodyL (DULCOLAX) 5 mg EC tablet Take 2 tablets by mouth right before beginning bowel prep. See instructions provided by the office 2 tablet 01/08/20 25 Active amLODIPine (NORVASC) 5 mg tablet TAKE 1 TABLET BY MOUTH EVERY DAY 90 tablet 1 01/30/20 25 Active ibuprofen (ADVIL,MOTRIN) 800 mg tablet TAKE 1 TABLET (800 MG TOTAL) BY MOUTH EVERY 8 HOURS NEEDED FOR MODERATE PAIN 90 tablet 1 02/08/20 25 Active amLODIPine (NORVASC) 5 mg tablet TAKE 1 TABLET BY MOUTH EVERY DAY 90 tablet 1 07/20/20 24 025 Discontinued ibuprofen (ADVIL,MOTRIN) 800 mg tablet Take 1 tablet (800 mg total) by mouth every 8 (eight) hours if needed for moderate pain. 90 each 1 11/21/19 25 025 Discontinued Active Problems Problem Noted Date Diagnosed Date Moderate mixed hyperlipidemia not requiring stat in therapy 12/11/2024 Morbid obesity with BMI of 4 0.0-44.9, adult ([facility] V24, [facility] V28) 04/26/2024 Hypertension 04/08/2023 Insomnia 04/08/2023 Moderate episode of recurren t major depressive disorder ([facility] V24, [facility] V28) 04/08/2023 Anxiety 12/14/2021 Back pain 08/11/2017 Obesity, unspecified obesity severity, unspecified obesity type 08/11/2017 ACL tear 07/27/2010 Encounters Date Type Department Care Team Description 01/21/2025 11:19 AM EDT Anesthesia Event [facility] [address] [place] [phone] Christopher Aleman DO McAdams, Megan, CRNA 01/21/2025 9:56 AM EDT - 01/21/2025 11:59 PM EDT Hospital Encounter [facility] [address] [place] [phone] Rosalva Batista MD McAdams, Megan, CRNA Colon cancer screening Discharge Disposition: Home or Self Care 12/25/2024 Telephone Adult Medicine - [address] [phone] Christopher Larose PA Medication Problem (nicotine (Nicotrol) 10 mg inhaler) 12/14/2024 Telephone Adult Medicine - [place] [address] [place] [phone] Christopher Larose PA Results (Labs - info from [facility]) 11/26/2024 Telephone Gastroenterology - [place] [address] [place] [address] Rosalva Batista MD special procedure 11/20/2024 4:00 PM EDT Office Visit [facility] [address] [place] [phone] Christopher Larose PA Adult general medical examination (Primary Dx); Primary hypertension; Anxiety; Screening, anemia, deficiency, iron; Screening for cardiovascular condition; Class 2 severe obesity due to excess calories with serious comorbidity and body mass index (BMI) of 39.0 to 39.9 in adult (CMS/HCC V24, [facility] V28); Screen for colon cancer; Screening, lipid; Need for urvtgpuzqw-ouxiynh-cbx tussis (Tdap) vaccine; Screen for STD (sexually transmitted disease); Other fatigue; Snoring from Last 3 Months Immunizations Name Administration Dates Next Due Influenza trivalent, with pr eservative (Fluzone; Afluria) 6mo and older 05/16/2020 PPD Test 04/30/2015 Ekotrope SARS-CoV-2 COVID-19, mRNA, LNP-S, preservative free 11/19/2020 Tdap Tetanus diptheria acell ular pertussis (Boostrix; Adacel) 7yo and older 11/20/2024,03/02/2011 Surgical History Surgery Date Site/Laterality Comments ORTHOPEDIC SURGERY 09/24/2010 PROCEDURE: HISTORICAL ORTHOPEDIC SURGERY; COMMENT: torn ACL right knee OTHER SURGICAL HISTORY Right PROCEDURE: [place] DRAINAGE OVARIAN CYST UNI/BI SPX ABDOMINAL KNEE SURGERY 2016 Right PROCEDURE: HISTORICAL KNEE SURGERY; COMMENT: meniscus tear ROBOTIC ASSISTED HYSTERECTOMY 08/01/2019 - 07/31/2020 Medical History Medical History Date Comments Family history of diabetes mellitus 05/14/2009 DX:Family history of diabetes mellitus Back pain 08/11/2017 DX:Back pain Hypertension Anxiety Depression Obesity Insomnia ACL tear Family History Medical History Relation Name Comments [...] = 0.6 oz pur e alcohol) weekends Interpersonal Safety Answer Date Record ed Physical Abuse 01/21/2025 Verbal Abuse 01/21/2025 Comments No Sex and Gender Information Value Date Recorded Sex Assigned at Not on file Legal Sex Female 2:27 PM EDT Gender Identity Not on file Sexual Orientation Not on file Obstetrics History Last Filed Vital Signs Vital Sign Reading Time Taken Comments Blood Pressure 109/60 01/21/2025 12:02 PM EDT Pulse 72 01/21/2025 12:02 PM EDT Temperature 35.8 C (96.4 F) 01/21/2025 10:46 AM EDT Respiratory Rate 16 01/21/2025 12:02 PM EDT Oxygen Saturation 100% 01/21/2025 12:02 PM EDT Inhaled Oxygen Concentration - - Weight 104 kg (230 lb) 01/21/2025 10:46 AM EDT Height 162.6 cm (5' 4 ) 01/21/2025 10:46 AM EDT Body Mass Index 39.48 01/21/2025 10:46 AM EDT Plan of Treatment Upcoming Encounters Date Type Department Care Team (Late st Contact Info) Description 03/08/2025 1:50 PM EDT Appointment Radiology Department [address] [phone] Health Maintenance Due Date Last Done Comments Pneumococcal Vaccine: 50+ Years (1 of 2 - PCV) 1993 Social Influencers of Health Screening 10/29/2020 Depression Screening 08/01/2024 Zoster Vaccines (1 of 2) 2024 Influenza Vaccine (#1) 2025 05/16/2023, 2019 Cervical Cancer Screening: HPV 04/28/2025 04/28/2020 Hypertension/CHF/CAD Annual BMP Blood Test 12/11/2025 12/11/2024, 12/02/2023, 12/02/2023 Breast Cancer Screening 03/01/2026 03/01/20 24, 03/01/2024, 11/19/2021, Additional history exists Cholesterol Screening (Lipid Panel) 12/11/2029 12/11/2024, 11/16/2021 DTaP,Tdap,and Td Vaccines (3 - Td or Tdap) 11/20/2034 11/20/2024, 03/02/2011 Colorectal Cancer Screening: Colonoscopy 01/21/2035 01/21/2025 COVID-19 Vaccine Discontinued 11/19/2020 HIV Screening Discontinued [...] on patient's age to complete this topic RSV Immunization Patients Under 20 months Aged Out No longer eligible based on patient's age to complete this topic Varicella Vaccines Aged Out No longer eligible based on patient's age to complete this topic Procedures Procedure Name Priority Date/Time Associated Diagnosis Comments COLONOSCOPY Routine 01/21/2025 11:41 AM EDT Colon cancer screening HEMOGLOBIN A1C Routine 12/11/2024 11:49 AM EDT [...] screening mammogram for malignant neoplasm of breast HPV Routine 04/28/2020 from Last 3 Months or Most Recently Relevant to Health Maintenance Results * COLONOSCOPY Anesthesia - MAC; [facility] ENDOSCOPY (01/21/2025 11:41 AM EDT) Anatomical Region Laterality Modality Endoscopy 01/21/2025 11:2 5 AM EDT Impressions 01/21/2025 11:42 AM EDT - Diverticulosis in the sigmoid colon. - Internal hemorrhoids. - No specimens collected. Recommendation: - Repeat colonoscopy in 10 years for screening purposes. - High fiber diet. Narrative 01/21/2025 11:42 AM EDT [facility] GI Patient Name: Glenny Major Procedure Date: 01/21/2025 11:25 AM Date of : 1975 Age: 49 Gender: Female Note Status: Finalized Attending MD: Rosalva Batista MD, Procedure Date No Time: 01/21/2025 Procedure: Colonoscopy Indications: Screening for colorectal malignant neoplasm Providers: Rosalva Batista MD Referring MD: Rosalva Batista MD Medicines: Monitored Anesthesia Care Complications: No immediate complications. Estimated blood loss: None. Estimated Blood Loss: Estimated blood loss: none. Procedure: Pre-Anesthesia Assessment: - Prior to the procedure, a History and Physical was performed, and patient medications and allergies were reviewed. The patient is competent. The risks and benefits of the procedure and the sedation options and risks were discussed with the patient. All questions were answered and informed consent was obtained. Patient identification and proposed procedure were verified by the physician, the nurse, the industrial aerial installer and the accelerator technician in the pre-procedure area in the endoscopy suite. Mental Status Examination: alert and oriented. Airway Examination: normal oropharyngeal airway and neck mobility. Respiratory Examination: clear to auscultation. CV Examination: normal. Prophylactic Antibiotics: The patient does not require prophylactic antibiotics. Prior Anticoagulants: The patient has taken no anticoagulant or antiplatelet agents. ASA Grade Assessment: III - A patient with severe systemic disease. After reviewing the risks and benefits, the patient was deemed in satisfactory condition to undergo the procedure. The anesthesia plan was to use monitored anesthesia care (MAC). Immediately prior to administration of medications, the patient was re-assessed for adequacy to receive sedatives. The heart rate, respiratory rate, oxygen saturations, blood pressure, adequacy of pulmonary ventilation, and response to care were monitored throughout the procedure. The physical status of the patient was re-assessed after the procedure. After I obtained informed consent, the scope was passed under direct vision. Throughout the procedure, the patient's blood pressure, pulse, and oxygen saturations were monitored continuously.The Colonoscope was introduced through the anus and advanced to the cecum, identified by appendiceal orifice and ileocecal valve. The colonoscopy was performed without difficulty. The patient tolerated the procedure well. The quality of the bowel preparation was excellent. Findings: The perianal and digital rectal examinations were normal. Multiple small-mouthed diverticula were found in the sigmoid colon. Internal hemorrhoids were found during retroflexion. The hemorrhoids were Grade I (internal hemorrhoids that do not prolapse) and Grade II (internal hemorrhoids that prolapse but reduce spontaneously). Procedure Code(s): --- Professional --- G0121, Colorectal cancer screening; colonoscopy on individual not meeting criteria for high risk Diagnosis Code(s): --- Professional --- Z12.11, Encounter for screening for malignant neoplasm of colon CPT copyright 2020 [employer]. All rights reserved. The codes documented in this report are preliminary and upon electrical design technologist review may be revised to meet current compliance requirements. Rosalva Batista MD 01/21/2025 11:42:35 AM This report has been signed electronically.Rosalva Batista MD Number of Addenda: 0 Note Initiated On: 01/21/2025 11:25 AM Scope Withdrawal Time: 0 hours 8 minutes 22 seconds Scope In: 11:29:05 AM Scope Out: 11:40:36 AM Endoscopy Department at [facility] - [address] [place] [phone] Procedure Note Rosalva Batista MD - 01/21/2025 [facility] GI Patient Name: Glenny Major Procedure Date: 01/21/2025 11:25 AM Date of : 1975 Age: 49 Gender: Female Note Status: Finalized Attending MD: Rosalva Batista MD, Procedure Date No Time: 01/21/2025 Procedure: Colonoscopy Indications: Screening for colorectal malignant neoplasm Providers: Rosalva Batista MD Referring MD: Rosalva Batista MD Medicines: Monitored Anesthesia Care Complications: No immediate complications. Estimated blood loss:None. Estimated Blood Loss: Estimated blood loss: none. Procedure: Pre-Anesthesia Assessment: - Prior to the procedure, a History and Physicalwas performed, and patient medications and allergieswere reviewed. The patient is competent. The risks and benefits of the procedure and the sedation optionsand risks were discussed with the patient. Allquestions were answered and informed consent was obtained. Patient identification and proposed procedure were verified by the physician, the nurse, theanesthetist and the accelerator technician in the pre-procedure area in the endoscopy suite. Mental Status Examination: alertand oriented. Airway Examination: normal oropharyngeal airway and neck mobility. Respiratory Examination: clear to auscultation. CV Examination: normal. Prophylactic Antibiotics: The patient does notrequire prophylactic antibiotics. Prior Anticoagulants: The patient has taken no anticoagulant or antiplatelet agents. ASA Grade Assessment: III - A patient with severe systemic disease. After reviewing the risksand benefits, the patient was deemed in satisfactory condition to undergo the procedure. The anesthesia plan was to use monitored anesthesia care (MAC). Immediately prior to administration of medications, the patient was re-assessed for adequacy to receive sedatives. The heart rate, respiratory rate, oxygen saturations, blood pressure, adequacy of pulmonary ventilation, and response to care were monitored throughout the procedure. The physical status ofthe patient was re-assessed after the procedure. After I obtained informed consent, the scope was passed under direct vision. Throughout theprocedure, the patient's blood pressure, pulse, and oxygen saturations were monitored continuously.The Colonoscope was introduced through the anus and advanced to the cecum, identified by appendiceal orifice and ileocecal valve. The colonoscopy was performed without difficulty. The patient tolerated the procedure well. The quality of the bowel preparation was excellent. Findings: The perianal and digital rectal examinations were normal. Multiple small-mouthed diverticula were found inthe sigmoid colon. Internal hemorrhoids were found duringretroflexion. The hemorrhoids were Grade I (internal hemorrhoids that do not prolapse) and Grade II (internal hemorrhoids that prolapse but reducespontaneously). Procedure Code(s): --- Professional --- G0121, Colorectal cancer screening; colonoscopy on individual not meeting criteria for high risk Diagnosis Code(s): --- Professional --- Z12.11, Encounter for screening for malignantneoplasm of colon CPT copyright 2020 [employer]. All rights reserved. The codes documented in this report are preliminary and upon electrical design technologist reviewmay be revised to meet current compliance requirements. Rosalva Batista MD 01/21/2025 11:42:35 AM This report has been signed electronically.Rosalva Batista MD Number of Addenda: 0 Note Initiated On: 01/21/2025 11:25 AM Scope Withdrawal Time: 0 hours 8 minutes 22 seconds Scope In: 11:29:05 AM Scope Out: 11:40:36 AM Endoscopy Department at [facility] - [address] [place] [phone] IMPRESSION: - Diverticulosis in the sigmoid colon. - Internal hemorrhoids. - No specimens collected. Recommendation: - Repeat colonoscopy in 10 years for screening purposes. - High fiber diet. Rosalva Batista MD GI~PROCEDURE ORDERABLES Fin al Result * Hepatitis C antibody (12/11/2024 11:49 AM EDT) Hepatitis C Antibody Negative Negative LAB CHEMISTRY METHOD 12/11/2024 5:[address] [facility] Blood Venous blood specimen / Unknown Venipuncture / Unknown 12/11/2024 11:49 AM EDT 12/11/2024 11:49 AM EDT Christopher BENITEZ LAB BLOOD ORDERABLES Final Res ult [facility] [address] [place] [address], [place] [phone] * HIV 1,2 antibody, p24 antigen with reflex to differentiation (12/11/2024 11:49 AM EDT) [facility] HIV Combo AB/AG Negative Negative LAB CHEMISTRY METHOD 12/11/2024 5:[address] [facility] Blood Venous blood specimen / Unknown Venipuncture / Unknown 12/11/2024 11:49 AM EDT 12/11/2024 11:[address] [facility] - 12/11/2024 5:54 PM EDT This assay is a 4th generation assay allowing for earlier detection of HIV infection by detecting the presence of the HIV-1 p24 antigen as well as the traditional antibodies to HIV type 1 (including group O) and type 2. Use of a 4th generation assay is the current CDC recommendation for HIV screening. Christopher BENITEZ LAB BLOOD ORDERABLES Final Res ult Performing Organization Address [facility]/ZIP Co de Phone Number [facility] [address] [place] [address], [place] [phone] * Treponema pallidum antibody with reflex to RPR and particle agglutination (12/11/2024 11:49 AM EDT) T. Pallidum Antibodies Negative Negative LAB CHEMISTRY METHOD 12/11/2024 5:[address] [facility] Blood Venous blood specimen / Unknown Venipuncture / Unknown 12/11/2024 11:49 AM EDT 12/11/2024 11:49 AM EDT Christopher BENITEZ LAB BLOOD ORDERABLES Final Res ult Performing Organization Address [facility] de Phone Number [facility] [address] [place] [address], [place] [phone] * Thyroid stimulating hormone with reflex to free t4 and free t3 (12/11/2024 11:49 AM EDT) TSH 1.86 0.40 - 4.00 mcIU/mL LAB CHEMISTRY METHOD 12/11/2024 5:[address] [facility] Blood Venous blood specimen / Unknown Venipuncture / Unknown 12/11/2024 11:49 AM EDT 12/11/2024 11:49 AM EDT Christopher BENITEZ LAB BLOOD ORDERABLES Final Res ult Performing Organization Address [facility] Co de Phone Number [facility] [address] [place] [address], [place] [phone] * (ABNORMAL) Lipid panel with reflex to direct LDL (12/11/2024 11:49 AM EDT) Cholesterol 239(H) 0 - 200 mg/dL LAB CHEMISTRY METHOD 12/11/2024 3:[address] [facility] Triglycerides 115 0 - 150 mg/dL LAB CHEMISTRY METHOD 12/11/2024 3:[address] [facility] HDL 102 >=40 mg/dL LAB CHEMISTRY METHOD 12/11/2024 3:[address] [facility] LDL Calculated 114(H) 0 - 100 mg/dL LAB CHEMISTRY METHOD 12/11/2024 3:[address] [facility] VLDL Cholesterol Devaughn 23 mg/dL LAB CHEMISTRY METHOD 12/11/2024 3:[address] [facility] Non HDL Chol. (LDL+VLDL) 137 <145 mg/dL LAB CHEMISTRY METHOD 12/11/2024 3:[address] [facility] Chol/HDL Ratio 2.3 0.0 - 4.4 LAB CHEMISTRY METHOD 12/11/2024 3:[address] [facility] Blood Venous blood specimen / Unknown Venipuncture / Unknown 12/11/2024 11:49 AM EDT 12/11/2024 11:49 AM EDT Christopher BENITEZ LAB BLOOD ORDERABLES Final Res ult [facility] [address] [place] [address], * (ABNORMAL) CBC auto differential (12/11/2024 11:49 AM EDT) WBC 5.7 4.8 - 10.8 K/mcL LAB HEMETOLOGY METHOD 12/11/2024 2:[address] [facility] RBC 4.00 3.80 - 4.80 M/mcL LAB HEMETOLOGY METHOD 12/11/2024 2:[address] [facility] Hemoglobin 13.6 11.5 - 16.0 g/dL LAB HEMETOLOGY METHOD 12/11/2024 2:[address] [facility] Hematocrit 41.2 35.0 - 47.0 % LAB HEMETOLOGY METHOD 12/11/2024 2:[address] [facility] MCV 102.7(H) 79.0 - 98.0 FL LAB HEMETOLOGY [facility] MCH 33.9(H) 27.0 - 32.0 pcg LAB HEMETOLOGY METHOD 12/11/2024 2:[address] [facility] MCHC 33.0 32.0 - 37.0 g/dL LAB HEMETOLOGY METHOD 12/11/2024 2:[address] [facility] RDW 14.2 11.0 - 15.0 % LAB HEMETOLOGY METHOD 12/11/2024 2:44 PM [facility] Platelets 249 130 - 400 K/mcL LAB HEMETOLOGY METHOD 12/11/2024 2:[address] [facility] MPV 11.4(H) 7.0 - 11.0 FL LAB HEMETOLOGY METHOD 12/11[facility]2024 [facility] NRBC 0.0 <1.0 % LAB HEMETOLOGY METHOD 12/11/2024 2:44 PM [facility] NRBC Absolute 0.00 <0.10 K/mcL LAB HEMETOLOGY METHOD 12/11/2024 2:[address] [facility] Neutrophils Relative 55.5 % LAB HEMETOLOGY METHOD 12/11[facility]2024 2[facility] Lymphocytes Relative 32.3 % LAB HEMETOLOGY METHOD 12/11/2024 2:44 PM [facility] Monocytes Relative 8.7 % LAB HEMETOLOGY METHOD 12/11/2024 2:44 PM [facility] Eosinophils Relative 2.6 % LAB HEMETOLOGY METHOD 12/11/2024 2:[address] [facility] Basophils Relative 0.7 % LAB HEMETOLOGY METHOD 12/11/2024 2:[address] [facility] Immature Granulocytes Relative 0.2 % LAB HEMETOLOGY METHOD 12/11/2024 2:[address] [facility] Neutrophils Absolute 3.17 1.50 - 7.00 K/mcL LAB HEMETOLOGY METHOD 12/11/2024 2:[address] [facility] Lymphocytes Absolute 1.85 1.00 - 5.00 K/mcL LAB HEMETOLOGY METHOD 12/11/2024 2:[address] [facility] Monocytes Absolute 0.50 0.20 - 1.00 K/mcL LAB HEMETOLOGY METHOD 12/11/2024 2:[address] [facility] Eosinophils Absolute 0.15 0.00 - 0.50 K/mcL LAB HEMETOLOGY METHOD 12/11/2024 2:[address] [facility] Basophils Absolute 0.04 0.00 - 0.20 K/mcL LAB HEMETOLOGY METHOD 12/11/2024 2:[address] [facility] Immature Granulocytes Absolute 0.01 0.00 - 0.03 K/mcL LAB HEMETOLOGY METHOD 12/11/2024 2:[address] [facility] Blood Venous blood specimen / Unknown Venipuncture / Unknown 12/11/2024 11:49 AM EDT 12/11/2024 11:49 AM EDT us Christopher BENITEZ LAB BLOOD ORDERABLES Final Res ult [facility] [address] [place] [address], * Hemoglobin A1c (12/11/2024 11:49 AM EDT) Hemoglobin A1C 5.8 <6.5 % LAB CHEMISTRY METHOD 12/13/2024 9:40 AM [facility] Mean Bld Glu Estim. 120 mg/dL LAB CHEMISTRY METHOD 12/13/2024 9:40 AM [facility] Blood Venous blood specimen / Unknown Venipuncture / Unknown 12/11/2024 11:49 AM EDT 12/11/2024 11:49 AM EDT Christopher BENITEZ LAB BLOOD ORDERABLES Final Res ult [facility] [address] [place] [address], * (ABNORMAL) Comprehensive metabolic panel (12/11/2024 11:49 AM EDT) [facility] Sodium 138 133 - 145 mmol/L LAB CHEMISTRY METHOD 12/11/2024 3:56 PM [facility] Potassium 4.2 3.5 - 5.5 mmol/L LAB CHEMISTRY METHOD 12/11/2024 3:56 PM [facility] Chloride 104 96 - 110 mmol/L LAB CHEMISTRY METHOD 12/11/2024 3:56 PM [facility] CO2 26 21 - 32 mmol/L LAB CHEMISTRY METHOD 12/11/2024 3:56 PM [facility] Anion Gap 8 3 - 11 LAB CHEMISTRY METHOD 12/11/2024 3:56 PM [facility] Glucose 130(H) 70 - 100 mg/dL LAB CHEMISTRY METHOD 12/11/2024 3:56 PM [facility] BUN 20 5 - 25 mg/dL LAB CHEMISTRY METHOD 12/11/2024 3:56 PM [facility] Creatinine 0.84 0.50 - 1.10 mg/dL LAB CHEMISTRY METHOD 12/11/2024 3:56 PM [facility] eGFR 85 >=60 mL/min/1. 73m2 LAB CHEMISTRY METHOD 12/11/2024 3:[address] [facility] Comment:Calculation based on the Chronic Kidney Disease Epidemiology Collaboration (CKD-EPI) equation refit without adjustment for race. BUN/Creatinine Ratio 23.8 LAB CHEMISTRY METHOD 12/11/2024 3:[address] [facility] Calcium 9.4 8.5 - 10.5 mg/dL LAB CHEMISTRY METHOD 12/11/2024 3:56 PM [facility] AST (SGOT) 21 10 - 42 unit/L LAB CHEMISTRY METHOD 12/11/2024 3:56 PM [facility] ALT (SGPT) 29 10 - 60 unit/L LAB CHEMISTRY METHOD 12/11/2024 3:56 PM [facility] Alkaline Phosphatase 73 42 - 121 unit/L LAB CHEMISTRY METHOD 12/11/2024 3:56 PM [facility] Total Protein 7.4 6.0 - 8.0 g/dL LAB CHEMISTRY METHOD 12/11/2024 3:56 PM [facility] Albumin 3.7 3.2 - 5.0 g/dL LAB CHEMISTRY METHOD 12/11/2024 3:56 PM [facility] Total Bilirubin 0.6 0.0 - 1.4 mg/dL LAB CHEMISTRY METHOD 12/11/2024 3:56 PM [facility] Blood Venous blood specimen / Unknown Venipuncture / Unknown 12/11/2024 11:49 AM EDT 12/11/2024 11:49 AM EDT us Christopher BENITEZ LAB BLOOD ORDERABLES Final Res ult [facility] [address] [place] [address], * SCREENING MAMMOGRAPHY BI 2-VIEW BREAST INC [...] Most Recently Relevant to Health Maintenance Insurance [facility] Care Teams Second Miller Relationship Specialty Start Date End Date Mar Gudino MD [address] [place] [phone] PCP - General Internal Medicine 11/04/20
== END 2025-02-18 10:34 | disposition home or self-care (01) ==
LOC: HO.HOS 09:47
PROVIDERS: Visit Provider Physician Assistant
DX: S92.355A Nondisplaced fracture of fifth metatarsal bone, left foot, initial encounter for closed fracture (principal)
CPT/HCPCS: 99213

== ENCOUNTER → 2025-02-18 09:53 | Outpatient (BNV) | payer OTHER, SELFPAY | PROVIDERS: Visit Provider Radiology Diagnostic Radiology | DX: S92.352D Displaced fracture of fifth metatarsal bone, left foot, subsequent encounter for fracture with routine healing (principal) | CPT/HCPCS: 73630 ==